=== PATIENT | male | born 1950 | race Caucasian/White ===

== ENCOUNTER 2020-01-16 09:31 | Emergency (ER) | payer MEDICARE ==
[2020-01-16] MEDS ORDERED: Dicyclomine 20 MG TAB ONE (10:09)
[2020-01-16] MEDS ORDERED: Ondansetron PF 4 MG/2 ML Vial ONE (10:09)
[2020-01-16 10:52] LABS: #Basophils 0.1 thou/uL (0.0-0.2); #Eosinphils 0.6 thou/uL (0.0-0.7); #Lymphocytes 1.8 thou/uL (1.20-3.40); #Monocytes 0.9 thou/uL (0.11-0.59); #Neutrophils 5.7 thou/uL (1.40-6.50); %Basophils 0.8 % (0.0-1.0); %Eosinophils 6.5 % (0.0-10.0); %Lymphocytes 20.1 % (21.0-51.0); %Monocytes 10.2 % (0.0-10.0); %Neutrophils 62.4 % (42.0-75.0); Mean Corpuscular HGB CONC 33.3 g/dL (32.0-36.0); Mean Corpuscular Volume 96.1 fL (78.0-98.0); Mean Platelet Volume 7.8 fL (7.4-10.4); Platelet Count 218 thou/uL (130-400); RBC Distribution Width 12.2 % (11.5-14.5); Red Blood Cell (RBC) Count 3.75 mill/uL (4.70-6.10); White Blood Cell (WBC) Count 9.1 thou/uL (4.8-10.8)
[2020-01-16 11:13] LABS: ALT (SGPT) 8 U/L (8-55); AST (SGOT) 12 U/L (5-34); Albumin 3.2 g/dL (3.4-4.8); Alkaline Phosphatase 77 U/L (40-110); Anion Gap 14 mmol/L (10-20); BUN (Urea Nitrogen) 25 mg/dL (8.4-25.7); Bilirubin, Total 0.4 mg/dL (0.2-1.2); CK (CPK) 45 U/L (30-200); Calc. Creatinine Clearance 0 mL/min (70-130); Calcium 8.3 mg/dL (7.8-10.44); Carbon Dioxide 21 mmol/L (23-31); Chloride 109 mmol/L (98-107); Estimated GFR-MDRD 88; Globulin 2.3 g/dL (2.4-3.5); Glucose 83 mg/dL (80-115); Magnesium 1.8 mg/dL (1.6-2.6); Potassium 4.2 mmol/L (3.5-5.1); Protein, Total 5.5 g/dL (5.8-8.1); Sodium 140 mmol/L (136-145)
[2020-01-16] MEDS ORDERED: Acetaminophen 500 MG TAB ONE (13:02)
[2020-01-16] MEDS ORDERED: Lidocaine 4% Cream 5 GM TUBE w/ Tegaderm ONE (13:05)
[2020-01-16 13:33] LABS: Bilirubin Negative (Negative); Blood, Urine Negative (Negative); Clarity Clear (Clear); Glucose, Urine (Dipstick) Normal (Negative); Ketone, Urine Negative (Negative); Leukocyte Negative Leu/uL (Negative); Nitrite Negative (Negative); Protein, Urine (Dipstick) 10 mg/dL (Neg-Trace); Specific Gravity, Urine 1.016 (1.002-1.036); Urobilinogen Normal mg/dL (Less than 2)
== END 2020-01-16 18:15 | disposition home or self-care (01) ==
LOC: ERS 09:31
DX: A04.5 Campylobacter enteritis (principal); E86.0 Dehydration; I10 Essential (primary) hypertension; Z79.899 Other long term (current) drug therapy
CPT/HCPCS: 36415; 80053; 81003; 82550; 83605; 83735; 84484; 85025; 87045; 87046; 87086; 87324; 87427; 87449; 93005; 96361; 96374; J2405

== ENCOUNTER 2020-02-19 07:51 | Outpatient (CLI) | payer MEDICARE, OTHER ==
[2020-02-20 10:30] LABS: SARS-CoV-2 MS2 Positive; SARS-CoV-2 N Gene Negative; SARS-CoV-2 S Gene Negative; SARS-CoV-2 by NAA Not Detected (NotDetected); SARS-CoV-2 orf1ab Negative
== END 2020-02-19 07:52 | disposition home or self-care (01) ==
LOC: LABBT 07:51
PROVIDERS: ATTEND Internal Medicine
DX: K59.09 Other constipation (principal); G31.9 Degenerative disease of nervous system, unspecified; Z20.828 Contact with and (suspected) exposure to other viral communicable diseases
CPT/HCPCS: 87635; U0003

== ENCOUNTER 2020-02-19 11:00 | Inpatient (IN) | payer MEDICARE ==
[2020-02-21 12:00] VITALS: BMI 14.3
--- NOTE | 2020-02-21 12:19 | HP ---
REASON FOR ADMISSION: Neurogenic bowel, admission for bowel preparation prior to planned colonoscopy evaluation. HISTORY OF PRESENT ILLNESS: Mr. Ang Damon is a 69-year-old man, whom I recently met in clinic in consultation for severe worsening constipation. He has a history of hypertension as well as some undefined progressive neurological deterioration over the past 12 years or so. He has some spastic weakness, which is greater on the right side and also what sounds like neurogenic bowel. He recalls undergoing some neurologic workup years ago in [place], but decided not to proceed further with it. He has been wheelchair bound for the past decade. He lives alone. His daughter and her family live about an hour away. He only recently established care with a primary physician here. He has been dealing with chronic constipation over the past 12 years and he no longer has control over his bowels. Usually every several days, he would require an enema as well as digital manipulation in order to defecate. This has been his pattern for a long time, but now he has had a couple of recent episodes of fecal impactions. The first occurred 2 or 3 months ago. He was briefly admitted here with sepsis due to likely stercoral ulcer based on appearance of a CT abdomen and pelvis on December 18. He had recurrent stool impaction about a month ago on 01/19/2020. He had a several day stay at a rehab facility and with laxatives and enemas finally passed a large stool plug, had copious diarrhea. Now over the past couple of weeks at home, he will go several days without any bowel movement, then have several days of uncontrollable soft stool and gas. There is no abdominal pain, nausea, or vomiting. He says he can no longer hold in enemas. He and his daughter wanting to consider possible colostomy placement given the progressive difficulty in controlling the bowel movements. He has never undergone colonoscopy. There is no blood in the stool. PAST MEDICAL HISTORY: Hypertension, hyperlipidemia, undefined progressive neurologic deterioration. PAST SURGICAL HISTORY: None. ALLERGIES: NO KNOWN DRUG ALLERGIES. OUTPATIENT MEDICATIONS: 1. Amlodipine 10 mg daily. 2. Metoprolol 50 mg b.i.d. SOCIAL HISTORY: He does smoke. No alcohol or drug use. He lives alone. He is disabled. His daughter and her family live about an hour away. FAMILY HISTORY: The first cousin had colon cancer. REVIEW OF SYSTEMS: Full review of systems including constitutional, head, eyes, ears, nose, throat, GI, , cardiovascular, respiratory, musculoskeletal, neurologic systems is negative except as noted in the HPI. PHYSICAL EXAMINATION: GENERAL: A 69-year-old man, lying in bed comfortably, in no distress. SKIN: No jaundice. No rashes were palpable. He has decubitus ulceration to the sacral area, which I have reviewed the photo documentation, but did not personally examine today. EYES: No scleral icterus. Extraocular eye movements intact. ENT: Mucous membranes moist. No oral lesions. LYMPH: No submandibular or supraclavicular lymphadenopathy. THYROID: Nontender to palpation. HEART: Regular rate and rhythm. LUNGS: Clear to auscultation bilaterally. ABDOMEN: Nondistended. Bowel sounds are present. Soft and nontender to palpation throughout. He has a large right inguinal hernia. EXTREMITIES: No peripheral edema. VESSELS: Radial pulses 2+ bilaterally. NEURO: He has flaccid weakness of the upper and lower extremities bilaterally. He is not slurring his speech. Cranial nerves are intact bilaterally. LABORATORY STUDIES: COVID PCR from 02/19/2020 is negative. From 01/21/2020, WBC was 6.5, hemoglobin 11.6, and platelets 257. From November 2019, sodium was 141, potassium 4.4, BUN 18, and creatinine 1.18. LFTs all normal with total bilirubin 0.9, alkaline phosphatase 63, AST 12, ALT 8, and lipase 37. ASSESSMENT AND PLAN: 1. Chronic constipation. 2. Recent fecal impaction. 3. Degenerative disease of the nervous system, indeterminate etiology. We are admitting the patient for observation tonight and nursing assistance with bowel preparation, in anticipation of diagnostic colonoscopy tomorrow morning. Anticipate he will be able to be discharged from the hospital following the procedure. Assuming that there are no significant structural abnormalities on the colonoscopy, we will probably be sending him for outpatient surgical evaluation for consideration of whether palliative colostomy might be performed. We are going to consult the hospitalist for their assistance in any needed inpatient management of his other chronic medical issues. With regard to his neurologic deterioration, I had sent a referral for him to be seen by a neurologist on an outpatient basis. Job ID: [id number]
[2020-02-21] MEDS: Acetaminophen 325 MG TAB PO PRN (15:39)
--- NOTE | 2020-02-21 15:49 | PDOC.HOSPP ---
- Subjective Encounter Date: 02/21/20 Encounter Time: 14:00 Subjective: Mr. Damon is a 69-year-old male with past medical history of chronic constipation secondary to neurogenic bowel, undetermined chronic neurologic progressive weakness which she has had for 25 years, hypertension, hyperlipide abraham who was admitted by the GI service with plans for fecal disimpaction and colonoscopy. Hospitalist service was consulted for medical management of patient's chronic conditions. Patient reports that he has had a interval worsening of his neurogenic bowel, and reports that he will have to digitally evacuate his bowels, but that this has become increasingly difficult over the past month. He also notes that a few months ago he had some type of infection (records reports sepsis) that gave him profuse diarrhea. Patient expresses frustration with alternating between diarrhea and constipation episodes. His granddaughter and him both question if he can just have a colostomy bag instead. He denies any bloody bowel movements or black tarry stools. Denies abdominal pain. Patient reports that he has an unknown neurologic condition that began approximately 25 years ago with foot drop, and has become progressively worse. He has been wheelchair-bound for the past 10 years. He also notes that he is started to notice weakness in his right arm as well. Patient states that he was worked up by a neurologist, and a sports medicine doctor who performed an MRI of his brain neck and knee with no abnormalities. He states that at that time his doctor wanted to do a lumbar puncture, EMG, nerve biopsy, muscle biopsy but since his doctor and the patient felt that there would be no cure for his condition patient refused the use. Patient expressively states that he does not want to undergo any invasive medical procedures for the evaluation of his neurologic condition. He is amenable to outpatient follow-up with a neurologist. Other than his bowel problems he denies any new neurologic complaints or deficits. - Objective Vital Signs & Weight: Vital Signs (12 hours) Temp Pulse Resp BP Pulse Ox 02/21/20 11:27 98.0 F 111 H 18 197/107 H 99 02/21/20 09:42 97.9 F 124 H 18 138/92 H 100 Weight Weight 118 lb I&O: 02/20/20 02/21/20 02/22/20 06:59 06:59 06:59 Intake Total 500 Output Total 300 Balance 200 Hospitalist ROS - Review of Systems Constitutional: denies: fever, chills, sweats, weakness, malaise, other Eyes: denies: pain, vision change, conjunctivae inflammation, eyelid inflammation, redness, other ENT: denies: ear pain, ear discharge, nose pain, nose discharge, nose congestion, mouth pain, mouth swelling, throat pain, throat swelling, other Respiratory: denies: cough, dry, shortness of breath, hemoptysis, SOB with excertion, pleuritic pain, sputum, wheezing, other Cardiovascular: denies: chest pain, palpitations, orthopnea, paroxysmal noc. dyspnea, edema, light headedness, other Gastrointestinal: reports: constipation. denies: nausea, vomiting, abdominal pain, diarrhea, melena, hematochezia, other Skin: denies: rash, lesions, omar, bruising, other Neurological: reports: weakness - Medication Medications: Home medications include Amlodipine Metoprolol Patient reports that he is prescribed many other medications, however he refuses to take any of them except for amlodipine and metoprolol. He has no known allergies - Exam General Appearance: NAD, awake alert Eye: PERRL, anicteric sclera ENT: normocephalic atraumatic, no oropharyngeal lesions, moist mucosa Neck: supple, symmetric, no JVD, no thyromegaly, no lymphadenopathy, no carotid bruit Heart: RRR, no murmur, no gallops, no rubs, normal peripheral pulses Respiratory: CTAB, no wheezes, no rales, no ronchi, normal chest expansion, no tachypnea, normal percussion Gastrointestinal: soft, non-tender, non-distended, normal bowel sounds, no palpable masses, no hepatomegaly, no splenomegaly, no bruit Extremities: 2+ LE edema (2+ edema to the right lower extremity, 1+ edema to left lower extremity.) Skin: normal turgor, no lesions, no rashes Neurological: no new deficit, hemiplegia Musculoskeletal: diffuse muscle atrophy Psychiatric: normal affect, normal behavior, A&O x 3 Psychiatric - other findings: Endorses mild depression, denies SI/HI Hosp A/P - Plan Neurogenic bowel Recurrent fecal impactions and chronic constipation secondary to unknown progressive neurologic disease. Patient admitted for diagnostic colonoscopy with Dr. Kaplan. Will follow GI recommendations. Plan -Diagnostic colonoscopy tomorow -GI primary Progressive neurologic weakness History of progressive neurologic weakness of unknown etiology for the past 25 years. Patient has had multiple work-ups in the past for this and has refused EMG, nerve biopsy, muscle biopsy. Patient endorses severe frustration with his neurologic condition. I recommend palliative care consult which he is amenable to. He is also amenable to outpatient neurology follow-up, but continues to refuse any invasive procedures so it is uncertain how helpful this will be to him. Plan Palliative care consult Outpatient neurology Hypertension We will continue patient's home amlodipine and metoprolol Left lower extremity swelling Patient reports that he has been less ambulatory and has had increased swelling to his bilateral lower extremities, left worse than right. On exam left lower extremity with pitting edema and mild erythema. Will obtain Doppler to rule out DVT. Plan Lower extremity ultrasound Sacral Ulcers Patient with chronic sacral ulcers. Will consult wound care to prevent progression and treat as needed. Plan -Wound care consult DVT prophylaxis SCDs Full code Case Discussed with attending physician, Dr. Canela.
[2020-02-21] MEDS: Amlodipine 10 MG TAB PO SCH (16:15)
--- NOTE | 2020-02-21 16:41 | ULT ---
EXAM: Left lower extremity venous Doppler US HISTORY: left lower extremity edema and pain FINDINGS: Grayscale, color-flow, Doppler evaluation, spectral analysis of the left lower extremity venous struc tures is performed with 2-D imaging. The left common femoral, superficial femoral, popliteal, posterior tibial, proximal greater saphenous and profunda femoral veins are imaged. There is normal luminal compressibility, flow, and augmentation the visualized deep venous structures of the left lower extremity. IMPRESSION: No evidence of a deep vein thrombosis in the left lower extremity.
[2020-02-21] MEDS ORDERED: GoLYTELY 4,000 ml Bottle PO SCH (17:00)
[2020-02-21] MEDS: Metoprolol Tartrate 50 MG TAB PO SCH (20:12)
[2020-02-21 21:06] LABS: #Basophils 0.1 thou/uL (0.0-0.2); #Eosinphils 0.5 thou/uL (0.0-0.7); #Lymphocytes 1.6 thou/uL (1.20-3.40); #Monocytes 0.8 thou/uL (0.11-0.59); #Neutrophils 5.4 thou/uL (1.40-6.50); %Eosinophils 5.8 % (0.0-10.0); %Lymphocytes 18.8 % (21.0-51.0); %Monocytes 9.2 % (0.0-10.0); %Neutrophils 65.3 % (42.0-75.0); Hemoglobin 11.5 g/dL (14.0-18.0); Mean Corpuscular HGB CONC 33.8 g/dL (32.0-36.0); Mean Corpuscular Hemoglobin 32.6 pg (27.0-31.0); Mean Corpuscular Volume 96.5 fL (78.0-98.0); Mean Platelet Volume 6.8 fL (7.4-10.4); Platelet Count 299 thou/uL (130-400); RBC Distribution Width 12.7 % (11.5-14.5); Red Blood Cell (RBC) Count 3.54 mill/uL (4.70-6.10); White Blood Cell (WBC) Count 8.2 thou/uL (4.8-10.8)
[2020-02-21 21:28] LABS: Anion Gap 14 mmol/L (10-20); BUN (Urea Nitrogen) 31 mg/dL (8.4-25.7); Calc. Creatinine Clearance 54 mL/min (70-130); Calcium 8.6 mg/dL (7.8-10.44); Carbon Dioxide 23 mmol/L (23-31); Chloride 104 mmol/L (98-107); Estimated GFR-MDRD 76; Glucose 154 mg/dL (80-115); Magnesium 1.9 mg/dL (1.6-2.6); Potassium 4.2 mmol/L (3.5-5.1); Sodium 137 mmol/L (136-145)
[2020-02-22] MEDS: Cyclobenzaprine 10 MG TAB PO PRN ×3 (00:36→21:52)
[2020-02-22 06:20] LABS: #Basophils 0.1 thou/uL (0.0-0.2); #Eosinphils 0.3 thou/uL (0.0-0.7); #Lymphocytes 1.3 thou/uL (1.20-3.40); #Monocytes 0.7 thou/uL (0.11-0.59); #Neutrophils 5.8 thou/uL (1.40-6.50); %Eosinophils 3.3 % (0.0-10.0); %Monocytes 8.5 % (0.0-10.0); %Neutrophils 71.3 % (42.0-75.0); Hemoglobin 11.2 g/dL (14.0-18.0); Mean Corpuscular HGB CONC 33.4 g/dL (32.0-36.0); Mean Corpuscular Hemoglobin 31.9 pg (27.0-31.0); Mean Corpuscular Volume 95.7 fL (78.0-98.0); Mean Platelet Volume 6.9 fL (7.4-10.4); Platelet Count 309 thou/uL (130-400); RBC Distribution Width 12.6 % (11.5-14.5); Red Blood Cell (RBC) Count 3.51 mill/uL (4.70-6.10); White Blood Cell (WBC) Count 8.1 thou/uL (4.8-10.8)
[2020-02-22 06:45] LABS: Anion Gap 13 mmol/L (10-20); BUN (Urea Nitrogen) 25 mg/dL (8.4-25.7); Calc. Creatinine Clearance 65 mL/min (70-130); Calcium 8.5 mg/dL (7.8-10.44); Carbon Dioxide 27 mmol/L (23-31); Chloride 104 mmol/L (98-107); Estimated GFR-MDRD Greater than 90; Glucose 77 mg/dL (80-115); Potassium 3.9 mmol/L (3.5-5.1); Sodium 140 mmol/L (136-145)
[2020-02-22] MEDS: Gabapentin 100 MG CAP PO SCH ×2 (08:28→15:44)
[2020-02-22] MEDS: Metoprolol Tartrate 50 MG TAB PO SCH ×2 (08:29→21:32)
[2020-02-22] MEDS ORDERED: GoLYTELY 4,000 ml Bottle PO SCH (09:00)
--- NOTE | 2020-02-22 09:31 | PRG ---
DATE OF SERVICE: 02/22/2020 SUBJECTIVE: Mr. Damon drank about 3/4 of the bowel preparation yesterday evening, but unfortunately has not really had too much stool output yet. He is feeling bloated and distended with some mild nausea, but has not had any vomiting, no significant abdominal pain. OBJECTIVE: VITAL SIGNS: Temperature 97.8, pulse 97, blood pressure 128/76, 95% oxygen saturation on room air. GENERAL: In no acute distress, lying in bed comfortably. HEART: Regular rate and rhythm. LUNGS: Clear to auscultation bilaterally. ABDOMEN: Bowel sounds are present. Nondistended. Soft and nontender to palpation. EXTREMITIES: No peripheral edema. LABORATORY STUDIES: WBC is 8.1, hemoglobin 11.2, and platelets 309. Sodium 140, potassium 3.9, BUN 25, creatinine 0.81, glucose 77, and magnesium 1.9. ASSESSMENT AND PLAN: 1. Chronic constipation, likely represents neurogenic bowel. 2. Recent fecal impaction. The patient has not had good enough results from his bowel preparation. We discussed bowel preparation is often more difficult with neurogenic bowel. We are going to postpone the procedure for today, have him finish out the gallon of YUPIQ from yesterday, and start working on a second gallon, hopefully to be completed by the end of the day. We will see what his results are with this, and tentatively plan to get the colonoscopy done tomorrow morning. He can have clear liquids today with the bowel preparation. Again, assuming there are no significant structural abnormalities on the colonoscopy, we will probably be sending him for outpatient surgical evaluation for consideration of palliative colostomy. 3. Degenerative disease of the nervous system, indeterminate etiology. I again discussed with the patient that formal neurologic evaluation would be valuable from both the diagnostic and prognostic perspective, and potentially therapeutic perspective as well. However, he reiterates that he does not desire to undergo any significant neurologic workup. He is open to following up with Neurology as an outpatient. I greatly appreciate the assistance of the hospitalist service and medical management. Palliative Care has been consulted as well. Job ID: [id number]
[2020-02-22] MEDS ORDERED: FLU VACC QS2020-21(65YR UP)/PF 240 MCG/0.7 ML SYRINGE IM ONE (13:00)
--- NOTE | 2020-02-22 13:01 | PDOC.PALCO ---
Palliative Care Consult - Consult Details Requesting Physician: Bettye Chow PA-C Reason for Consult: symptom management - Pertinent HPI Mr Damon is a 69 year old make with chronic illness of unknown neurologic progressive weakness. Onset 25 years ago. Currently wheelchair bound, dependent on assistance for basic ADL. He has chronic constipation secondary to his neurogenic bowel. States since rehab his bowel issues have progressed. He digitally disimpacts himself. Also reports no longer able to safely transition from his wheelchair to the commode and daily sits on a chux pad and has a caregiver assist with bowel regimen. No longer able to transition from wheelchair to commode as house door frame is not appropriate width for wheelchair. States bowel fluctuates at times between loose stools/diarrhea or significant constipation. Significant right inguinal hernia. He is desiring a colostomy. - Pertinent PMH Undiagnosed progressive neurologic weakness, hypertension, HDL, hernia - Social History Smoking Status: Current every day smoker Smoking: cigarettes Alcohol Use: none Drug Use History: none Living Situation: independent, other (Has daily private pay caregiver for one hour, a paid caregiver every tuesday to assist with personal errands/groceries) - Medications MAR Reviewed: Yes - Allergies Allergies/Adverse Reactions: Allergies Allergy/AdvReac Type Severity Reaction Status Date / Time No Known Allergies Allergy Verified 07/14/19 05:54 - Subjective Lying in bed. Converses easily. Finishing iman. Mild abdominal cramping that is intermittent. - ROS Constitutional: alert, weakness ENT: alteration in dentition Respiratory: dry cough Cardiology: other (Denies chest pain or palpitations.) Gastrointestinal: abdominal pain, constipation Musculoskeletal: leg pain Neurological: incoordination, numbness, weakness Skin: other (fragile, wound to sacrum) - Objective Vital Signs: Vital Signs - Most Recent Temp Pulse Resp BP Pulse Ox 98.2 F 80 18 160/77 H 96 02/22/20 12:16 02/22/20 12:16 02/22/20 12:16 02/22/20 12:16 02/22/20 12:16 Palliative Performance Scale: 40 - Physical Exam Constitutional: cachectic, ill appearing HEENT: EOMI, moist MMs, poor dentition Respiratory: clear to auscultation bilateral, unlabored breathing Cardiovascular: RRR Gastrointestinal: soft, non-tender, positive bowel sounds Deviation from normal: right inguinal hernia Musculoskeletal: diffuse muscle atrophy Deviation from normal: contracture to toes Deviation from normal: weakness to lower ext bilaterally, right upper with weakness. Skin: fragile, friable Deviation from normal: Wound to sacrum Psychiatric: A&O x 3, normal affect, normal mood - Problem List (1) Neurological muscle weakness Code(s): M62.81 - MUSCLE WEAKNESS (GENERALIZED) Current Visit: Yes Status: Acute (2) Neurogenic bowel Code(s): K59.2 - NEUROGENIC BOWEL, NOT ELSEWHERE CLASSIFIED Current Visit: Yes Status: Acute (3) Inguinal hernia Code(s): K40.90 - UNIL INGUINAL HERNIA, W/O OBST OR GANGR, NOT SPCF RECUR Current Visit: Yes Status: Acute (4) Constipation by delayed colonic transit Code(s): K59.01 - SLOW TRANSIT CONSTIPATION Current Visit: Yes Status: Acute (5) Severe protein-calorie malnutrition Code(s): E43 - UNSPECIFIED SEVERE PROTEIN-CALORIE MALNUTRITION Current Visit: Yes Status: Chronic (6) Palliative care encounter Code(s): Z51.5 - ENCOUNTER FOR PALLIATIVE CARE Current Visit: Yes Status: Acute - Plan/Recommendations Plan: Goal of Care: Desires colostomy. Maintain independence, dignity To have a colonscopy 02/22. Discussed dietary measures to promote fiber intake. He is edentulous, which is a significant consideration for intake as well as his stated desire to "eat what he wants" Depending on outcome from Colonscopy: Discussed daily mirilax, he has but does not use daily. Discussed using in coffee he drinks every morning Daily bowel program Consideration for Lubiprostone 24mg QD Initiated discussion in relation to Medical Power of Spark Tester and Directive to Physician, did not desire to pursue. In asking of plans for his future related to progressing weakness and decreasing ability to carry out ADL and remain in an independent environment he states he has not "thought about that". Encouraged his to discuss with his daughter so he can "respond as needed and not urgently react" agreeable to further conversation related to assumed disease progression and plans for the future. [75] minutes spent on this encounter with >50% of the time in counseling and coordination of care. Thank you for this very appropriate consult.
--- NOTE | 2020-02-22 15:43 | PDOC.HOSPP ---
- Subjective Encounter Date: 02/22/20 Encounter Time: 10:00 Subjective: Patient seen for follow-up regarding patient. He reports abdominal cramps. - Objective Vital Signs & Weight: Vital Signs (12 hours) Temp Pulse Resp BP Pulse Ox 02/22/20 12:16 98.2 F 80 18 160/77 H 96 02/22/20 07:22 97.8 F 97 19 128/76 95 02/22/20 04:30 99.1 F 98 18 128/65 95 Weight Admit Weight 118 lb Weight 118 lb I&O: 02/21/20 02/22/20 02/23/20 06:59 06:59 06:59 Intake Total 5140 Output Total 1950 2775 Balance 6920 -2775 Result Diagrams: 02/22/20 05:47 02/22/20 05:47 Additional Labs: Labs and MAR reviewed by ct Hospitalist ROS - Review of Systems Cardiovascular: denies: chest pain, palpitations, orthopnea, paroxysmal noc. dyspnea, edema, light headedness Gastrointestinal: reports: abdominal pain, constipation. denies: nausea, vo miting, diarrhea, melena, hematochezia - Medication Medications: Active Medications Generic Name Dose Route Start Last Admin Trade Name Freq PRN Reason Stop Dose Admin Acetaminophen 650 mg 02/21/20 15:33 02/21/20 15:39 Acetaminophen 325 Mg Tab PO 650 mg Q6H PRN Administration Headache/Fever or Pain Amlodipine Besylate 10 mg 02/21/20 21:00 02/21/20 16:15 Amlodipine 10 Mg Tab PO 10 mg HS JUAN Administration Cyclobenzaprine HCl 5 mg 02/21/20 23:53 02/22/20 15:37 Cyclobenzaprine 10 Mg Tab PO 5 mg TID PRN Administration Muscle Spasm Gabapentin 100 mg 02/22/20 09:00 02/22/20 08:28 Gabapentin 100 Mg Cap PO Not Given TID JUAN Metoprolol Tartrate 25 mg 02/21/20 21:00 02/22/20 08:29 Metoprolol Tartrate 50 Mg Tab PO 25 mg BID JUAN Administration Polyethylene Glycol/Electrolytes 4,000 ml 02/22/20 09:00 02/22/20 09:54 Golytely 4,000 Ml Bottle PO 02/22/20 21:00 4,000 ml NOW JUAN Administration - Exam General Appearance: awake alert Eye: anicteric sclera ENT: moist mucosa Neck: supple Heart: RRR Respiratory: CTAB Gastrointestinal: soft, non-tender Extremities: no clubbing Skin: no rashes Psychiatric: normal affect Hosp A/P (1) Constipation by delayed colonic transit Code(s): K59.01 - SLOW TRANSIT CONSTIPATION Status: Acute (2) Essential hypertension Code(s): I10 - ESSENTIAL (PRIMARY) HYPERTENSION Status: Acute (3) Severe protein-calorie malnutrition Code(s): E43 - UNSPECIFIED SEVERE PROTEIN-CALORIE MALNUTRITION Status: Chronic - Plan Patient had GoLYTELY last night, more GoLYTELY ordered for today. Patient to have colonoscopy tomorrow. Patient seen by palliative care service, would like to pursue colostomy down the road. Continue amlodipine 10 mg daily, metoprolol 25 mg 2 times a day and monitor vital signs. Titrate antihypertensives as needed.
--- NOTE | 2020-02-22 16:08 | RAD ---
XR Abdomen 1 View/KUB History: Constipation Comparison: CT examination December 2019 Findings: There continues to be dilated loops of large and small bowel. No free air. Lung bases are c lear. Impression: No free air. Moderate bowel dilatation.
[2020-02-22] MEDS: Lidocaine 2% Jelly 5 ML TUBE TOP PRN (21:31)
[2020-02-22] MEDS: Senokot S 8.6-50 MG TAB PO SCH (21:32)
[2020-02-22] MEDS: Amlodipine 10 MG TAB PO SCH (21:32)
[2020-02-22] MEDS ORDERED: Ondansetron ODT 4 MG TAB PO SCH (22:15)
[2020-02-23] MEDS: Gabapentin 100 MG CAP PO SCH ×4 (00:28→20:22)
[2020-02-23] MEDS: Lidocaine 2% Jelly 5 ML TUBE TOP PRN (03:32)
[2020-02-23] MEDS: Acetaminophen 325 MG TAB PO PRN (03:53)
[2020-02-23 04:26] LABS: Bilirubin Negative (Negative); Blood, Urine Trace (Negative); Clarity Turbid (Clear); Glucose, Urine (Dipstick) Normal (Negative); Ketone, Urine 10 mg/dL (Negative); Leukocyte 500 Leu/uL (Negative); Nitrite Negative (Negative); Protein, Urine (Dipstick) 10 mg/dL (Neg-Trace); Squamous Epithelial 0-3 HPF (0-3); Urobilinogen 3 mg/dL (Less than 2); WBC/HPF Greater than 50 HPF (0-3)
[2020-02-23 04:28] LABS: Bacteria/HPF 1+ HPF (None Seen)
[2020-02-23 04:32] LABS: Urine Culture Reflex Yes Yes
[2020-02-23 04:56] LABS: #Eosinphils 0.3 thou/uL (0.0-0.7); #Lymphocytes 1.3 thou/uL (1.20-3.40); #Monocytes 0.8 thou/uL (0.11-0.59); %Basophils 0.4 % (0.0-1.0); %Eosinophils 3.5 % (0.0-10.0); %Lymphocytes 15.7 % (21.0-51.0); %Monocytes 9.1 % (0.0-10.0); %Neutrophils 71.4 % (42.0-75.0); Hemoglobin 11.1 g/dL (14.0-18.0); Mean Corpuscular HGB CONC 33.4 g/dL (32.0-36.0); Mean Corpuscular Hemoglobin 32.1 pg (27.0-31.0); Platelet Count 287 thou/uL (130-400); RBC Distribution Width 12.7 % (11.5-14.5); Red Blood Cell (RBC) Count 3.45 mill/uL (4.70-6.10); White Blood Cell (WBC) Count 8.4 thou/uL (4.8-10.8)
[2020-02-23 05:21] LABS: Anion Gap 17 mmol/L (10-20); BUN (Urea Nitrogen) 21 mg/dL (8.4-25.7); Calc. Creatinine Clearance 69 mL/min (70-130); Calcium 8.4 mg/dL (7.8-10.44); Carbon Dioxide 21 mmol/L (23-31); Chloride 103 mmol/L (98-107); Estimated GFR-MDRD Greater than 90; Potassium 3.9 mmol/L (3.5-5.1); Sodium 137 mmol/L (136-145)
[2020-02-23 05:30] LABS: Glucose 55 mg/dL (80-115)
[2020-02-23] MEDS ORDERED: Dextrose 50% Abboject 50 ML SYRINGE ONE (05:36)
[2020-02-23] MEDS ORDERED: Dextrose 50% Abboject 50 ML SYRINGE SLOW IVP PRN (06:20)
[2020-02-23] MEDS ORDERED: Lidocaine 1% PF 5 ML VIAL ONE (10:36)
[2020-02-23] MEDS ORDERED: PROPOFOL 200 MG/20 ML VIAL ONE (10:36)
[2020-02-23] MEDS ORDERED: Promethazine HCl 25 MG/ML VIAL IM PRN ×2 (10:46→11:20)
[2020-02-23] MEDS ORDERED: Promethazine HCl 25 MG/ML VIAL SLOW IVP PRN ×2 (10:46→11:20)
[2020-02-23] MEDS ORDERED: Ondansetron HCl/PF 4 MG/2 ML Vial IVP PRN ×2 (10:46→11:20)
[2020-02-23] MEDS ORDERED: Ciprofloxacin 500 MG TAB PO SCH (11:00)
[2020-02-23] MEDS ORDERED: GoLYTELY 4,000 ml Bottle PO SCH (11:10)
--- NOTE | 2020-02-23 12:33 | OP ---
DATE OF PROCEDURE: 02/23/2020 PAPER GLUING OPERATOR SURGEON: None. PROCEDURE: 1. Colonoscopy, incomplete due to poor bowel preparation. 2. Manual fecal disimpaction under anesthesia. MEDICATIONS: See Anesthesia record. FINDINGS: After discussion of the risks, benefits, and alternatives of the procedure, informed consent was obtained and witnessed. Pre-endoscopic cardiopulmonary examination was satisfactory. Time-out was performed before sedation was achieved. Sedation was achieved with Anesthesia assistance in the endoscopy unit. The patient was placed in left lateral decubitus position. Digital rectal exam was performed and demonstrated external hemorrhoids as well as some semisolid stool within the rectal vault. A Pentax adult colonoscope was inserted into the anus. There remained copious amount of solid and semisolid stool within the rectum and rectosigmoid colon. The colonoscope was able to be passed beyond this area and into the proximal sigmoid and descending colon, which still had a lot of adherent more semi liquid stool and was overall quite dilated. The scope was passed up carefully to the level of estimated hepatic flexure where there was much more liquid stool visualized. The cecal base was not reached, and where visualized, the colonic mucosa appeared normal, but was significantly obscured by poor bowel preparation. Attention was then directed to the rectosigmoid area. I spent extensive time in irrigating and suctioning the area as well as performing repeated manual stool removal from the rectum. In this fashion, I was able to extract the vast majority of the semisolid stool from the rectum and rectosigmoid area with just a few small chunks remaining at the end of the procedure. Visualization of the rectum demonstrated few stercoral erosions, as well as internal hemorrhoids. The colonoscope was completely withdrawn and the patient allowed to recover. The patient tolerated the procedure well. There were no immediate postprocedure complications. IMPRESSION: 1. Incomplete colonoscopy due to copious amount of retained stool particularly in the distal colon. 2. Extensive irrigation and manual disimpaction of the rectum and rectosigmoid colon. 3. Few stercoral erosions in the rectum. 4. Internal and external hemorrhoids. 5. Overall findings consistent with severe neurogenic bowel causing chronic colonic pseudo-obstruction. RECOMMENDATIONS: 1. Continue on a clear liquid diet. 2. We will have the patient finish out his gallon of [employer] today. 3. Depending on stool output over the weekend, we will probably plan to repeat colonoscopy on Tuesday, and seek surgical consultation at that time. I agree the patient will likely benefit from subtotal colectomy with colostomy, but need to get the bowel cleaned out better first. Job ID: [id number] [place]
[2020-02-23] MEDS: Metoprolol Tartrate 50 MG TAB PO SCH ×2 (12:37→20:23)
[2020-02-23] MEDS: Senokot S 8.6-50 MG TAB PO SCH ×2 (12:37→20:23)
[2020-02-23] MEDS: Cyclobenzaprine 10 MG TAB PO PRN (13:45)
--- NOTE | 2020-02-23 16:58 | PDOC.HOSPP ---
- Subjective Encounter Date: 02/23/20 Encounter Time: 16:56 Subjective: Patient seen for follow-up regarding constipation. She had colonoscopy earlier today. She is sleepy but arousable, falling asleep right away. Could not complete review of systems. - Objective Vital Signs & Weight: Vital Signs (12 hours) Temp Pulse Resp BP Pulse Ox 02/23/20 08:00 98.7 F 98 16 112/64 96 Weight Admit Weight 118 lb Weight 118 lb I&O: 02/22/20 02/23/20 02/24/20 06:59 06:59 05:59 Intake Total 5140 2955 1050 Output Total 1950 5849 750 Balance 3190 -7394 300 Result Diagrams: 02/23/20 04:26 02/23/20 04:26 Additional Labs: Accuchecks 02/23/20 06:16 POC Glucose 162 H Labs and MAR reviewed by ca Hospitalist ROS - Review of Systems ROS unobtainable: due to mental status - Medication Medications: Active Medications Generic Name Dose Route Start Last Admin Trade Name Freq PRN Reason Stop Dose Admin Acetaminophen 650 mg 02/21/20 15:33 02/23/20 03:53 Acetaminophen 325 Mg Tab PO 650 mg Q6H PRN Administration Headache/Fever or Pain Amlodipine Besylate 10 mg 02/21/20 21:00 02/22/20 21:32 Amlodipine 10 Mg Tab PO 10 mg HS JUAN Administration Cyclobenzaprine HCl 5 mg 02/21/20 23:53 02/23/20 13:45 Cyclobenzaprine 10 Mg Tab PO 5 mg TID PRN Administration Muscle Spasm Dextrose/Water 25 gm 02/23/20 06:20 02/23/20 05:40 Dextrose 50% Abboject 50 Ml Syringe SLOW IVP 25 gm 0630 PRN Administration BLOOD GLUCOSE Gabapentin 100 mg 02/22/20 09:00 02/23/20 12:36 Gabapentin 100 Mg Cap PO Not Given TID JUAN Lidocaine HCl 0 ml 02/22/20 21:13 02/23/20 03:32 Lidocaine 2% Jelly 5 Ml Tube TOP 5 ml WILLCALL PRN Administration Pain Metoprolol Tartrate 25 mg 02/21/20 21:00 02/23/20 12:37 Metoprolol Tartrate 50 Mg Tab PO Not Given BID JUAN Senna/Docusate Sodium 1 tab 02/22/20 21:00 10/31/20 12:37 Senokot S 8.6-50 Mg Tab PO Not Given BID JUAN - Exam General Appearance: awake alert General - other findings: Appears malnourished Eye: anicteric sclera ENT: moist mucosa Neck: supple Heart: RRR Respiratory: CTAB Gastrointestinal: soft Extremities: no edema Skin: no rashes Musculoskeletal: no muscle wasting Psychiatric: lethargic Hosp A/P (1) Constipation by delayed colonic transit Code(s): K59.01 - SLOW TRANSIT CONSTIPATION Status: Acute (2) Essential hypertension Code(s): I10 - ESSENTIAL (PRIMARY) HYPERTENSION Status: Acute (3) Severe protein-calorie malnutrition Code(s): E43 - UNSPECIFIED SEVERE PROTEIN-CALORIE MALNUTRITION Status: Chronic - Plan Patient had colonoscopy earlier today, poor prep. He is having more GoLYTELY, possible colonoscopy on Tuesday. Attention is controlled.
[2020-02-23] MEDS: Ciprofloxacin 500 MG TAB PO SCH (20:22)
[2020-02-23] MEDS: Amlodipine 10 MG TAB PO SCH (20:23)
[2020-02-24] MEDS: Cyclobenzaprine 10 MG TAB PO PRN ×3 (02:26→18:27)
[2020-02-24] MEDS: Acetaminophen 325 MG TAB PO PRN ×2 (02:28→08:25)
[2020-02-24] MEDS: Ciprofloxacin 500 MG TAB PO SCH ×2 (05:35→20:33)
[2020-02-24 06:58] LABS: #Basophils 0.1 thou/uL (0.0-0.2); #Eosinphils 0.2 thou/uL (0.0-0.7); #Lymphocytes 1.3 thou/uL (1.20-3.40); #Monocytes 0.5 thou/uL (0.11-0.59); #Neutrophils 4.6 thou/uL (1.40-6.50); %Basophils 1.1 % (0.0-1.0); %Lymphocytes 18.8 % (21.0-51.0); %Monocytes 7.8 % (0.0-10.0); %Neutrophils 69.3 % (42.0-75.0); Hemoglobin 10.6 g/dL (14.0-18.0); Mean Corpuscular HGB CONC 32.9 g/dL (32.0-36.0); Mean Corpuscular Volume 97.2 fL (78.0-98.0); Mean Platelet Volume 6.8 fL (7.4-10.4); Platelet Count 237 thou/uL (130-400); RBC Distribution Width 12.5 % (11.5-14.5); White Blood Cell (WBC) Count 6.7 thou/uL (4.8-10.8)
[2020-02-24 07:21] LABS: Anion Gap 15 mmol/L (10-20); BUN (Urea Nitrogen) 16 mg/dL (8.4-25.7); Calc. Creatinine Clearance 66 mL/min (70-130); Calcium 8.4 mg/dL (7.8-10.44); Carbon Dioxide 25 mmol/L (23-31); Chloride 103 mmol/L (98-107); Estimated GFR-MDRD Greater than 90; Glucose 66 mg/dL (80-115); Potassium 3.8 mmol/L (3.5-5.1); Sodium 139 mmol/L (136-145)
[2020-02-24] MEDS: Metoprolol Tartrate 50 MG TAB PO SCH ×2 (08:18→20:33)
[2020-02-24] MEDS: Gabapentin 100 MG CAP PO SCH ×3 (08:19→23:24)
[2020-02-24] MEDS: Senokot S 8.6-50 MG TAB PO SCH ×2 (08:20→20:37)
--- NOTE | 2020-02-24 11:26 | PRG ---
DATE OF SERVICE: 02/24/2020 SUBJECTIVE: After his colonoscopy yesterday, Mr. Damon did finish out that second gallon of GoLYTELY. He remains on clear liquids. He is expressing extreme hunger. His abdominal discomfort has significantly improved. He continues to complain of overall weakness. OBJECTIVE: VITAL SIGNS: Temperature 97.8, pulse 83, blood pressure 108/68, 93% oxygen saturation on room air. GENERAL: Chronically ill. No acute distress. HEART: Regular rate and rhythm. LUNGS: Clear to auscultation bilaterally. ABDOMEN: Much less distended. Bowel sounds are present. Nontender to palpation. EXTREMITIES: No peripheral edema. Wasting of extremities x4. LABORATORY STUDIES: WBC 6.7, hemoglobin 10.6, platelets 237. Sodium 139, potassium 3.8, BUN 16, creatinine 0.80, glucose 66, calcium 8.4. ASSESSMENT AND PLAN: 1. Severe chronic constipation, secondary to neurogenic bowel. 2. Recurrent large stool impactions. I had another long discussion with the patient again today. His colonic dysmotility is indeed quite severe as he really had minimal results with 1-1/2 gallons of GoLYTELY. We got most of the solid stool cleared out on colonoscopy yesterday, but were unable to really get a good examination of the colonic mucosa. With his completion of that second gallon of GoLYTELY, he has had much better stool results, still not clear. At this point, we will keep him on clear liquids, give him some Ensure Clear, plan for a dose of magnesium citrate this evening, and we will re-attempt colonoscopy tomorrow morning to try to get better clean-out and better view of the colonic mucosa. Anticipate afterward, we will go ahead and formally seek surgical consultation for consideration of subtotal colectomy with colostomy. 3. Urinary tract infection. He is being treated with oral ciprofloxacin, plan 5-day course. Urine culture still pending. 4. Degenerative disease of the nervous system, indeterminate etiology. He does not desire to undergo any significant neurologic workup. I had referred him to a neurologist as an outpatient. I also recommended we have him be seen by PT/OT while he is here, but he declines this as well. Job ID: [id number]
--- NOTE | 2020-02-24 16:38 | PDOC.HOSPP ---
- Subjective Encounter Date: 02/24/20 Encounter Time: 09:00 Subjective: Patient seen in follow-up for severe constipation. Reports ongoing constipation. Denies chest pain or shortness of breath. - Objective Vital Signs & Weight: Vital Signs (12 hours) Temp Pulse Resp BP Pulse Ox 02/24/20 08:00 97.8 F 83 16 108/68 93 L Weight Admit Weight 118 lb Weight 118 lb I&O: 02/23/20 02/24/20 02/25/20 07:59 06:59 06:59 Intake Total Output Total 650 Balance -650 Result Diagrams: 02/24/20 06:37 02/24/20 06:36 Additional Labs: I reviewed patient's labs and [facility] Hospitalist ROS - Review of Systems Gastrointestinal: reports: constipation. denies: nausea, vomiting, abdominal pain, diarrhea, melena, hematochezia Genitourinary: denies: dysuria, frequency, incontinence, retention - Medication Medications: Active Medications Generic Name Dose Route Start Last Admin Trade Name Freq PRN Reason Stop Dose Admin Acetaminophen 650 mg 02/21/20 15:33 02/24/20 08:25 Acetaminophen 325 Mg Tab PO 650 mg Q6H PRN Administration Headache/Fever or Pain Amlodipine Besylate 10 mg 02/21/20 21:00 02/23/20 20:23 Amlodipine 10 Mg Tab PO 10 mg HS JUAN Administration Ciprofloxacin 500 mg 02/23/20 20:00 02/24/20 05:35 Ciprofloxacin 500 Mg Tab PO 02/28/20 06:01 500 mg 0600,2000 JUAN Administration Cyclobenzaprine HCl 5 mg 02/21/20 23:53 02/24/20 10:38 Cyclobenzaprine 10 Mg Tab PO 5 mg TID PRN Administration Muscle Spasm Dextrose/Water 25 gm 02/23/20 06:20 02/23/20 05:40 Dextrose 50% Abboject 50 Ml Syringe SLOW IVP 25 gm 0630 PRN Administration BLOOD GLUCOSE Gabapentin 100 mg 02/22/20 09:00 02/24/20 15:08 Gabapentin 100 Mg Cap PO Not Given TID JUAN Lidocaine HCl 0 ml 02/22/20 21:13 02/23/20 03:32 Lidocaine 2% Jelly 5 Ml Tube TOP 5 ml WILLCALL PRN Administration Pain Metoprolol Tartrate 25 mg 02/21/20 21:00 02/24/20 08:18 Metoprolol Tartrate 50 Mg Tab PO Not Given BID JUAN Senna/Docusate Sodium 1 tab 02/22/20 21:00 02/24/20 08:20 Senokot S 8.6-50 Mg Tab PO Not Given BID JUAN - Exam General Appearance: awake alert General - other findings: Appears malnourished Eye: anicteric sclera ENT: no oropharyngeal lesions Heart: RRR Respiratory: CTAB Gastrointestinal: non-tender, non-distended Skin: no rashes Psychiatric: normal affect Hosp A/P (1) Constipation by delayed colonic transit Code(s): K59.01 - SLOW TRANSIT CONSTIPATION Status: Acute (2) Essential hypertension Code(s): I10 - ESSENTIAL (PRIMARY) HYPERTENSION Status: Acute (3) Severe protein-calorie malnutrition Code(s): E43 - UNSPECIFIED SEVERE PROTEIN-CALORIE MALNUTRITION Status: Chronic - Plan Patient to have GoLYTELY. Repeat colonoscopy likely tomorrow. No other acute issues.
[2020-02-24] MEDS ORDERED: Magnesium Citrate 300 ML BOT PO SCH (18:00)
[2020-02-24] MEDS: Amlodipine 10 MG TAB PO SCH (20:34)
[2020-02-25] MEDS: Cyclobenzaprine 10 MG TAB PO PRN ×2 (03:57→21:01)
[2020-02-25] MEDS: Ciprofloxacin 500 MG TAB PO SCH ×2 (05:42→20:13)
[2020-02-25] MEDS: Metoprolol Tartrate 50 MG TAB PO SCH ×2 (09:04→20:58)
[2020-02-25] MEDS: Gabapentin 100 MG CAP PO SCH ×4 (09:05→20:13)
[2020-02-25] MEDS: Senokot S 8.6-50 MG TAB PO SCH ×3 (09:05→20:59)
[2020-02-25] MEDS ORDERED: PHENYLEPHRINE-NS 100 MCG/ML 10 ML SYRINGE ONE (09:26)
[2020-02-25] MEDS ORDERED: PROPOFOL 200 MG/20 ML VIAL ONE (09:26)
[2020-02-25] MEDS ORDERED: Lidocaine 1% PF 5 ML VIAL ONE (09:26)
[2020-02-25] MEDS: Polyethylene Glycol 3350 17 GM Packet PO SCH ×2 (14:31→20:12)
[2020-02-25] MEDS: Acetaminophen 325 MG TAB PO PRN (14:31)
--- NOTE | 2020-02-25 14:51 | PDOC.GSPN ---
Surgery Progress Note: Subj - Subjective Narrative: Mr. Damon is a 69-year-old male with a past medical history of an undefined progressive neurological disorder who was admitted to the hospital for worsening constipation and stool impaction. He has had constipation for over 10 years that he attributes to his neurological disorder. He has had this neurological disorder for about 12 years which has led to his right sided weakness. He also reports a right sided inguinal hernia, but he said that this does not bother him or cause him pain. We discussed the possibility of a colectomy with colostomy, and Mr. Damon said that he is willing to do anything that allows him to "live his life" and "enjoy eating again." As a result, if a colostomy and colectomy helps prevent his recurrent constipation and impaction, he is willing to undergo the surgery. He denies having abdominal pain. Surgery Progress Note: Obj - Vital signs Vital signs: Vital Signs - Most Recent Temp Pulse Resp BP Pulse Ox 99.9 F H 75 18 132/70 94 L 02/25/20 14:26 02/25/20 14:26 02/25/20 14:26 02/25/20 14:26 02/25/20 14:26 - Physical Exam General: no distress, no pain, cachectic Cardiovascular: regular rate and rhythm Respiratory: clear to auscultation Abdomen: soft, non tender, nondistended Hernia: inguinal Psychiatric: memory intact, oriented to time, oriented to person, oriented to place Surgery Progress Note: Results - Labs Result Diagrams: 02/24/20 06:37 02/24/20 06:36 Surgery Progress Note: A/P - Problem (1) Neurogenic bowel Current Visit: Yes Code(s): K59.2 - NEUROGENIC BOWEL, NOT ELSEWHERE CLASSIFIED Status: Acute (2) Constipation by delayed colonic transit Current Visit: Yes Code(s): K59.01 - SLOW TRANSIT CONSTIPATION Status: Chronic (3) Inguinal hernia Current Visit: Yes Code(s): K40.90 - UNIL INGUINAL HERNIA, W/O OBST OR GANGR, NOT SPCF RECUR Status: Chronic (4) Severe protein-calorie malnutrition Current Visit: Yes Code(s): E43 - UNSPECIFIED SEVERE PROTEIN-CALORIE MALNUTRITION Status: Chronic - Plan Plan: Will consider performing a subtotal colectomy with colostomy to alleviate the patient from his recurrent constipation and stool impaction. As the patient indicated, what matters most to him is enjoying his life and being able to eat; if the surgery allows him to get to this point faster, he is willing to undergo it. The inguinal hernia does not need to be managed now as it does not cause him any discomfort or pain.
--- NOTE | 2020-02-25 17:32 | OP ---
DATE OF PROCEDURE: 02/25/2020 PROCEDURE PERFORMED: Incomplete colonoscopy. DESCRIPTION OF PROCEDURE: After the patient was informed of the risk, benefits, and possible complications of endoscopy including perforation, reaction to medication, and aspiration, informed consent was obtained. The patient was brought to endoscopy suite, where he was sedated in gradual fashion. Once he was comfortable, a rectal examination was performed, showed slightly increased sphincter tone. The endoscope was advanced to the anal canal through the colon to about the transverse colon, where formed stool was encountered. The prep was poor. There was brown liquid stool and caking of dark stool in the colon navarro, which made illumination very difficult. We ultimately ran into formed stool at about 70 to 80 cm. I suspect this was in the transverse colon that could not be passed. The procedure was aborted because I felt high risk for perforation. Additionally, it was noted that there was a large right scrotal hernia and evaluating his last CAT scan from December, it appeared the cecum was in this on that scan. This was easily reducible at this time. POSTPROCEDURE DIAGNOSES: 1. Right scrotal hernia with colon involved as per previous CT. 2. Severe constipation, possibly related to neurologic disease undefined. RECOMMENDATIONS: 1. MiraLAX t.i.d. Low residue diet. Surgical consultation regarding a large hernia, and the question of possible colostomy for severe constipation issues. 2. I think he should have a Neurology consult, especially if there is going to be any consideration of surgery, just to get a better idea of what his underlying disorder may be. 3. Anil murphy Job ID: [id number]
--- NOTE | 2020-02-25 19:09 | PDOC.HOSPP ---
- Subjective Encounter Date: 02/25/20 Encounter Time: 18:00 Subjective: Patient seen for follow-up regarding severe constipation. He denies any chest pain or shortness of breath. He denies any nausea. - Objective Vital Signs & Weight: Vital Signs (12 hours) Temp Pulse Resp BP Pulse Ox 02/25/20 18:54 98.0 F 91 16 109/59 L 95 02/25/20 18:31 97.5 F L 02/25/20 15:00 80 18 130/70 02/25/20 14:45 75 18 132/70 02/25/20 14:26 99.9 F H 75 18 132/70 94 L 02/25/20 08:00 96 Weight Admit Weight 118 lb Weight 118 lb I&O: 02/24/20 02/25/20 02/26/20 06:59 06:59 06:59 Intake Total 2201 Output Total 2470 Balance -269 Result Diagrams: 02/24/20 06:37 02/24/20 06:36 Additional Labs: Labs and MAR reviewed by tx Hospitalist ROS - Review of Systems Respiratory: denies: cough, shortness of breath, SOB with excertion, pleuritic pain, wheezing Gastrointestinal: reports: constipation. denies: nausea, vomiting, abdominal pain, diarrhea, melena, hematochezia - Medication Medications: Active Medications Generic Name Dose Route Start Last Admin Trade Name Freq PRN Reason Stop Dose Admin Acetaminophen 650 mg 02/21/20 15:33 02/25/20 14:31 Acetaminophen 325 Mg Tab PO 650 mg Q6H PRN Administration Headache/Fever or Pain Amlodipine Besylate 10 mg 02/21/20 21:00 02/24/20 20:34 Amlodipine 10 Mg Tab PO 10 mg HS JUAN Administration Ciprofloxacin 500 mg 02/23/20 20:00 02/25/20 05:42 Ciprofloxacin 500 Mg Tab PO 02/28/20 06:01 500 mg 0600,2000 JUAN Administration Cyclobenzaprine HCl 5 mg 02/21/20 23:53 02/25/20 03:57 Cyclobenzaprine 10 Mg Tab PO 5 mg TID PRN Administration Muscle Spasm Dextrose/Water 25 gm 02/23/20 06:20 02/23/20 05:40 Dextrose 50% Abboject 50 Ml Syringe SLOW IVP 25 gm 0630 PRN Administration BLOOD GLUCOSE Gabapentin 100 mg 02/22/20 09:00 02/25/20 14:30 Gabapentin 100 Mg Cap PO 100 mg TID JUAN Administration Lidocaine HCl 0 ml 02/22/20 21:13 02/23/20 03:32 Lidocaine 2% Jelly 5 Ml Tube TOP 5 ml WILLCALL PRN Administration Pain Metoprolol Tartrate 25 mg 02/21/20 21:00 02/25/20 09:04 Metoprolol Tartrate 50 Mg Tab PO 25 mg BID JUAN Administration Polyethylene Glycol 17 gm 02/25/20 15:00 02/25/20 14:31 Polyethylene Glycol 3350 17 Gm Packet PO 17 gm TID JUAN Administration Senna/Docusate Sodium 1 tab 02/22/20 21:00 02/25/20 09:05 Senokot S 8.6-50 Mg Tab PO Not Given BID JUAN - Exam General Appearance: awake alert General - other findings: Malnourished Eye: anicteric sclera ENT: normocephalic atraumatic Neck: supple Heart: RRR Respiratory: CTAB Gastrointestinal: soft, non-tender Extremities: no edema Skin: no rashes Musculoskeletal: normal tone Psychiatric: normal affect, normal behavior Hosp A/P (1) Constipation by delayed colonic transit Code(s): K59.01 - SLOW TRANSIT CONSTIPATION Status: Chronic (2) Essential hypertension Code(s): I10 - ESSENTIAL (PRIMARY) HYPERTENSION Status: Chronic (3) Severe protein-calorie malnutrition Code(s): E43 - UNSPECIFIED SEVERE PROTEIN-CALORIE MALNUTRITION Status: Chronic - Plan Status post colonoscopy today. General surgery and neurology services have been consulted for opinion and help with management. No other acute issues.
[2020-02-25] MEDS: Melatonin 3 MG TAB PO PRN (20:12)
[2020-02-25] MEDS: Amlodipine 10 MG TAB PO SCH (20:58)
[2020-02-26] MEDS: Ciprofloxacin 500 MG TAB PO SCH ×2 (06:17→20:00)
--- NOTE | 2020-02-26 08:01 | CON ---
DATE OF CONSULTATION: 02/25/2020 CHIEF COMPLAINT: Neurodegenerative disease, constipation. HISTORY OF PRESENT ILLNESS: This is a 69-year-old male with a history of a progressive neurodegenerative disease that causes significant right-sided weakness. He has developed severe constipation as a result of this. He has taken daily MiraLAX and Senokot without much improvement. A part of his problem is difficulty passing stool at the anus. He has had 2 disimpactions this hospitalization. He has always turned down official neurologic workup and so the nature of his neurodegenerative disease is unknown at this time. PAST MEDICAL HISTORY: Hypertension, hyperlipidemia. PAST SURGICAL HISTORY: Denies. MEDICATIONS TAKEN DAILY: 1. Amlodipine. 2. Metoprolol. ALLERGIES: NO KNOWN DRUG ALLERGIES. SOCIAL: He is single. No smoking or alcohol. Lives alone. REVIEW OF SYSTEMS: Otherwise 10 system review of systems otherwise negative unless described above. PHYSICAL EXAMINATION: VITAL SIGNS: Blood pressure is 112/58, pulse 84, respirations 16. He is afebrile. HEENT: Sclerae anicteric. Oropharynx clear. NECK: No lymphadenopathy. CHEST: Clear. HEART: Regular rate. ABDOMEN: Soft, nontender, nondistended. Reducible right inguinal hernia. No other hernias. EXTREMITIES: No ischemia to extremities. LABORATORY DATA: White cell count is 6, hemoglobin 10. Sodium 139, potassium 3.8. ASSESSMENT: 1. Unspecified neurodegenerative disorder. 2. Severe chronic constipation, likely related to #1. 3. Some component of this is likely related to sphincter tone issues, inability to relax through the anal canal. PLAN: Would consider colostomy. Dr. Ruiz has put in for Neurology consult. As long as his neurologic disease does not put him at increased risk of general anesthetic, would be willing to do that on Tuesday or of this week. Job ID: [id number]
--- NOTE | 2020-02-26 09:35 | MRI ---
Exam: Brain MRI with and without contrast HISTORY: Seizure COMPARISON: None FINDINGS: Gradient echo sequence: Coronal gradient echo images do not demonstrate any hemorrhage. Calvarium: Appropriate T1 marrow signal intensity Midline brain parenchyma: Unremarkable Cerebrum:No parenchymal mass, mass effect or midline shift. Brain volume is age-appropriate. Cortical stewart-white matter differentiation is preserved. Extensive chronic small vessel ischemic changes white matter. Ventricles: No evidence of hydrocephalus. Sinuses and mastoid air cells: Adequate aeration Diffusion: Central arterial flow is maintained. Absent restricted diffusion. Postcontrast images: No pathologic enhancement of the brain parenchyma. Postcontrast images are limit ed due to motion degradation. IMPRESSION: 1. No MR evidence of mesial temporal sclerosis. 2. Chronic small vessel ischemic changes white matter 3. Absent restricted diffusion. No acute infarct. 4. Limited evaluation due to motion and patient. Nevertheless, no pathologic enhancement of the brain parenchyma.
[2020-02-26] MEDS: Polyethylene Glycol 3350 17 GM Packet PO SCH ×3 (09:44→21:30)
[2020-02-26] MEDS: Gabapentin 100 MG CAP PO SCH ×3 (09:45→23:02)
[2020-02-26] MEDS: Metoprolol Tartrate 50 MG TAB PO SCH ×2 (09:45→23:01)
[2020-02-26] MEDS: Senokot S 8.6-50 MG TAB PO SCH ×2 (09:46→21:30)
[2020-02-26] MEDS ORDERED: Magnevist 469MG/ML 20 ML VIAL ONE (10:38)
[2020-02-26] MEDS: Cyclobenzaprine 10 MG TAB PO PRN (11:03)
--- NOTE | 2020-02-26 11:12 | PRG ---
DATE OF SERVICE: SUBJECTIVE: Mr. Damon has no complaints today. He is currently undergoing EEG. He has already had MRI as part of his neurologic workup. He has no complaints. OBJECTIVE: VITAL SIGNS: He is afebrile. Vital signs are stable. ABDOMEN: Soft, nontender, nondistended. Right inguinal hernia, reducible. ASSESSMENT: Chronic neurodegenerative state causing severe constipation and impaction. PLAN: The plan was colostomy. We will await for finalization of at least preliminary information for his neurologic disorder. I could perform that surgery laparoscopic diverting colostomy on of this week. We will follow with you. Job ID: [id number]
--- NOTE | 2020-02-26 11:58 | PRG ---
DATE OF SERVICE: 02/26/2020 SUBJECTIVE: Mr. Damon has had no bowel movement since colonoscopy. He does feel better in general. He is tolerating solid diet now. OBJECTIVE: VITAL SIGNS: Temperature 98.1, pulse 95, blood pressure 108/59. GENERAL: He is in no acute distress. Alert and oriented x3. LUNGS: Clear to auscultation bilaterally. HEART: Regular rate and rhythm without murmur. ABDOMEN: Soft, nontender, and nondistended. Bowel sounds are present. EXTREMITIES: No lower extremity edema. LABORATORY DATA: White blood cell count 6.7, hemoglobin 10.6, platelets 237. Creatinine 0.8. IMPRESSION: 1. Severe chronic constipation, was stool impacted in the proximal colon, even within a right inguinal hernia, which was reducible. 2. Neurologic disorder for which he is undergoing further evaluation by Neurology. RECOMMENDATIONS: 1. He is being worked up for neurological abnormality. 2. Plan is for colostomy. This is tentatively scheduled for later this week pending completion of the Neurology workup. 3. Continue MiraLAX three times daily. 4. He is currently tolerating solid diet. Job ID: [id number]
--- NOTE | 2020-02-26 12:08 | CON ---
NEUROLOGY CONSULTATION DATE OF CONSULTATION: 02/26/2020 REASON FOR CONSULTATION: Neurodegenerative disorder. HISTORY OF PRESENT ILLNESS: Mr. Ang Damon is a 69-year-old male with history significant for progressive neurodegenerative disease, which resulted in significant right-sided weakness and muscle atrophy over the last 2 decades. Per the patient, he had seen neurologist almost 20 years ago and then he got evaluated by a neurologist in [place] last time in 2001 when he had MRI of the brain and spine and also of the right knee. They were not able to find any specific diagnosis, so he decided not to follow up with Neurology anymore. The patient denies any problem with slurred speech, problems with swallowing. Per the patient, he does not even try to sit up, to stand up, and walk for the last 10 years because he becomes increasingly unsteady on feet. The patient denies nausea, vomiting, headache, chest pain, abdominal pain, recent illness, or recent exposure to COVID. Currently, he is admitted to the Oncology unit because of complaint of severe constipation. Per the patient, he decided in 2001 not to seek any neurological care and since then he has progressive decrease in muscle mass and he has been wheelchair bound since the last 10 years. REVIEW OF SYSTEMS: All systems reviewed and were negative except the pertinent positives and negatives mentioned in the HPI. PAST MEDICAL HISTORY: 1. Hypertension. 2. Hyperlipidemia. PAST SURGICAL HISTORY: No significant past surgical history. ALLERGIES: NO KNOWN DRUG ALLERGIES. MEDICATIONS: 1. Amlodipine. 2. Metoprolol. SOCIAL HISTORY: He is single, lives alone. Denies smoking, alcohol, or illegal drug use. Vital Signs & Weight: Vital Signs (12 hours) Temp Pulse Resp BP Pulse Ox 02/25/20 18:54 98.0 F 91 16 109/59 L 95 02/25/20 18:31 97.5 F L 02/25/20 15:00 80 18 130/70 02/25/20 14:45 75 18 132/70 02/25/20 14:26 99.9 F H 75 18 132/70 94 L 02/25/20 08:00 96 Weight Admit Weight 118 lb Weight 118 lb I&O: 02/24/20 02/25/20 02/26/20 06:59 06:59 06:59 Intake Total 2201 Output Total 1920 Balance -269 Active Medications Generic Name Dose Route Start Last Admin Trade Name Freq PRN Reason Stop Dose Admin Acetaminophen 650 mg 02/21/20 15:33 02/25/20 14:31 Acetaminophen 325 Mg Tab PO 650 mg Q6H PRN Administration Headache/Fever or Pain Amlodipine Besylate 10 mg 02/21/20 21:00 02/24/20 20:34 Amlodipine 10 Mg Tab PO 10 mg HS JUAN Administration Ciprofloxacin 500 mg 02/23/20 20:00 02/25/20 05:42 Ciprofloxacin 500 Mg Tab PO 02/28/20 06:01 500 mg 0600,1999 JUAN Administration Cyclobenzaprine HCl 5 mg 02/21/20 23:53 02/25/20 03:57 Cyclobenzaprine 10 Mg Tab PO 5 mg TID PRN Administration Muscle Spasm Dextrose/Water 25 gm 02/23/20 06:20 02/23/20 05:40 Dextrose 50% Abboject 50 Ml Syringe SLOW IVP 25 gm 0630 PRN Administration BLOOD GLUCOSE Gabapentin 100 mg 02/22/20 09:00 02/25/20 14:30 Gabapentin 100 Mg Cap PO 100 mg TID [facility] Administration Lidocaine HCl 0 ml 02/22/20 21:13 02/23/20 03:32 Lidocaine 2% Jelly 5 Ml Tube TOP 5 ml WILLCALL PRN Administration Pain Metoprolol Tartrate 25 mg 02/21/20 21:00 02/25/20 09:04 Metoprolol Tartrate 50 Mg Tab PO 25 mg BID [facility] Administration Polyethylene Glycol 17 gm 02/25/20 15:00 02/25/20 14:31 Polyethylene Glycol 3350 17 Gm Packet PO 17 gm TID [facility] Administration Senna/Docusate Sodium 1 tab 02/22/20 21:00 02/25/20 09:05 Senokot S 8.6-50 Mg Tab PO Not Given BID [facility] PHYSICAL EXAMINATION: General Appearance: awake alert General - other findings: Malnourished Eye: anicteric sclera ENT: normocephalic atraumatic Neck: supple Heart: RRR Respiratory: CTAB Gastrointestinal: soft, non-tender Extremities: no edema Skin: no rashes Musculoskeletal: normal tone Psychiatric: normal affect, normal behavior Neurological: Mental status; the patient is alert and oriented to person, place, and time. Speech is clear. Recent and remote memory intact. Fund of knowledge is appropriate. Motor; muscle tone is decreased. Muscle bulk is significantly decreased. Generalized weakness with left upper and lower extremity 4+/5, right upper extremity 3/5, right lower extremity 2/5. Cerebellar; finger-nose testing intact. Gait deferred due to the patient's safety reasons. DATA REVIEWED: I reviewed the MRI of the brain, which was negative for acute intracranial pathology. ASSESSMENT AND PLAN: (1) Constipation by delayed colonic transit Code(s): K59.01 - SLOW TRANSIT CONSTIPATION Status: Chronic (2) Essential hypertension Code(s): I10 - ESSENTIAL (PRIMARY) HYPERTENSION Status: Chronic (3) Severe protein-calorie malnutrition (4) Progressive Neurodegenerative disorder Code(s): E43 - UNSPECIFIED SEVERE PROTEIN-CALORIE MALNUTRITION Status: Chronic (4) Progressive Neurodegenerative disorder Status: Chronic ( Mr. Ang Damon is a 69-year-old male with history significant for progressive neurodegenerative disease, etiology unclear. MRI of the brain negative for acute intracranial process or chronic demyelinating lesions or chronic small vessel disease. EEG ongoing, we will follow up on the results. I had an in-depth discussion with the patient regarding the need for further workup including for evaluation of neurodegenerative disorder, which includes nerve conduction studies and electromyography by a specialist in an outpatient neurology clinic. The patient declined any further workup at this time. He does not want to pursue any more workup regarding his disorder. The etiology remains unclear, most likely an underlying neuromuscular disorder, which needs to be evaluated as outpatient since we do not have the capability to do EMG nerve conduction study as inpatient. The patient would benefit from PT/OT. Continue medical management per primary team. Thank you for the consult. Job ID: [id number] MTDD
--- NOTE | 2020-02-26 13:37 | PDOC.EEG ---
Neurology EEG Report - Report Report: EEG was performed using 24 channel [email or web address] video digital EEG machine with 24 disc electrodes. This was an extended 2-hour 4 minutes of inpatient video EEG recording. Digital analysis of the EEG was done for Driss and seizure detection which revealed no abnormalities. Background: The posterior background rhythm is 10 to 12 Hz the background rhythm attenuates with eye opening and enhances with eye closure. Photic stimulation: Bioccipital symmetric driving response is observed. Hyperventilation: Not performed Sleep: None EEG diagnosis: Normal awake EEG.
--- NOTE | 2020-02-26 15:53 | PDOC.HOSPP ---
- Subjective Encounter Date: 02/26/20 Encounter Time: 14:00 Subjective: Pt seen for followup re: constipation. Denies chest pain. - Objective Vital Signs & Weight: Vital Signs (12 hours) Temp Pulse Resp BP Pulse Ox 02/26/20 07:58 98.1 F 95 16 108/59 L 95 Weight Admit Weight 118 lb Weight 118 lb I&O: 02/25/20 02/26/20 02/27/20 06:59 06:59 06:59 Intake Total 2201 1200 Output Total 2470 Balance -269 1200 Result Diagrams: 02/24/20 06:37 02/24/20 06:36 Additional Labs: Labs and MARs reviewed by [facility] Hospitalist ROS - Review of Systems Cardiovascular: denies: chest pain, palpitations, orthopnea, paroxysmal noc. dyspnea, edema, light headedness Gastrointestinal: reports: constipation. denies: nausea, vomiting, abdominal pain, diarrhea, melena, hematochezia - Medication Medications: Active Medications Generic Name Dose Route Start Last Admin Trade Name Freq PRN Reason Stop Dose Admin Acetaminophen 650 mg 02/21/20 15:33 02/25/20 14:31 Acetaminophen 325 Mg Tab PO 650 mg Q6H PRN Administration Headache/Fever or Pain Amlodipine Besylate 10 mg 02/21/20 21:00 02/25/20 20:58 Amlodipine 10 Mg Tab PO Not Given HS JUAN Ciprofloxacin 500 mg 02/23/20 20:00 02/26/20 06:17 Ciprofloxacin 500 Mg Tab PO 02/28/20 06:01 500 mg 0600,2000 JUAN Administration Cyclobenzaprine HCl 5 mg 02/21/20 23:53 02/26/20 11:03 Cyclobenzaprine 10 Mg Tab PO 5 mg TID PRN Administration Muscle Spasm Dextrose/Water 25 gm 02/23/20 06:20 02/23/20 05:40 Dextrose 50% Abboject 50 Ml Syringe SLOW IVP 25 gm 0630 PRN Administration BLOOD GLUCOSE Gabapentin 100 mg 02/22/20 09:00 02/26/20 15:44 Gabapentin 100 Mg Cap PO Not Given TID JUAN Lidocaine HCl 0 ml 02/22/20 21:13 02/23/20 03:32 Lidocaine 2% Jelly 5 Ml Tube TOP 5 ml WILLCALL PRN Administration Pain Melatonin 3 mg 02/25/20 19:43 02/25/20 20:12 Melatonin 3 Mg Tab PO 3 mg HS PRN Administration Insomnia Metoprolol Tartrate 25 mg 02/21/20 21:00 02/26/20 09:45 Metoprolol Tartrate 50 Mg Tab PO 25 mg BID JUAN Administration Polyethylene Glycol 17 gm 02/25/20 15:00 02/26/20 15:44 Polyethylene Glycol 3350 17 Gm Packet PO 17 gm TID JUAN Administration Senna/Docusate Sodium 1 tab 02/22/20 21:00 02/26/20 09:46 Senokot S 8.6-50 Mg Tab PO Not Given BID JUAN - Exam General Appearance: awake alert Eye: anicteric sclera ENT: moist mucosa Neck: supple Heart: RRR Respiratory: CTAB Gastrointestinal: soft, non-tender Psychiatric: normal affect, normal behavior Hosp A/P (1) Constipation by delayed colonic transit Code(s): K59.01 - SLOW TRANSIT CONSTIPATION Status: Chronic (2) Essential hypertension Code(s): I10 - ESSENTIAL (PRIMARY) HYPERTENSION Status: Chronic (3) Severe protein-calorie malnutrition Code(s): E43 - UNSPECIFIED SEVERE PROTEIN-CALORIE MALNUTRITION Status: Chronic - Plan Status post colonoscopy yesterday. Pt to have colostomy. MRI brain - nil acute.
[2020-02-26] MEDS: Loratadine 10 MG TAB PO PRN (21:30)
[2020-02-26] MEDS: Amlodipine 10 MG TAB PO SCH (23:00)
[2020-02-27] MEDS: Ciprofloxacin 500 MG TAB PO SCH ×2 (06:32→19:41)
[2020-02-27] MEDS: Senokot S 8.6-50 MG TAB PO SCH ×2 (08:13→19:41)
[2020-02-27] MEDS: Gabapentin 100 MG CAP PO SCH ×4 (08:14→19:41)
[2020-02-27] MEDS: Polyethylene Glycol 3350 17 GM Packet PO SCH ×3 (08:15→19:47)
[2020-02-27] MEDS: Metoprolol Tartrate 50 MG TAB PO SCH ×2 (08:15→19:41)
[2020-02-27] MEDS: Acetaminophen 325 MG TAB PO PRN (08:59)
[2020-02-27] MEDS: Cyclobenzaprine 10 MG TAB PO PRN (09:37)
[2020-02-27 11:18] LABS: #Eosinphils 0.3 thou/uL (0.0-0.7); #Lymphocytes 1.1 thou/uL (1.20-3.40); #Monocytes 0.6 thou/uL (0.11-0.59); #Neutrophils 4.2 thou/uL (1.40-6.50); %Basophils 0.5 % (0.0-1.0); %Eosinophils 5.4 % (0.0-10.0); %Lymphocytes 17.9 % (21.0-51.0); %Monocytes 9.1 % (0.0-10.0); Hemoglobin 10.7 g/dL (14.0-18.0); Mean Corpuscular HGB CONC 31.6 g/dL (32.0-36.0); Mean Corpuscular Hemoglobin 31.2 pg (27.0-31.0); Mean Corpuscular Volume 98.6 fL (78.0-98.0); Mean Platelet Volume 6.3 fL (7.4-10.4); Platelet Count 258 thou/uL (130-400); RBC Distribution Width 12.3 % (11.5-14.5); Red Blood Cell (RBC) Count 3.44 mill/uL (4.70-6.10); White Blood Cell (WBC) Count 6.3 thou/uL (4.8-10.8)
[2020-02-27 11:47] LABS: Anion Gap 11 mmol/L (10-20); BUN (Urea Nitrogen) 20 mg/dL (8.4-25.7); Calc. Creatinine Clearance 59 mL/min (70-130); Calcium 8.7 mg/dL (7.8-10.44); Carbon Dioxide 28 mmol/L (23-31); Chloride 104 mmol/L (98-107); Estimated GFR-MDRD 85; Glucose 145 mg/dL (80-115); Potassium 4.2 mmol/L (3.5-5.1); Sodium 139 mmol/L (136-145)
--- NOTE | 2020-02-27 13:45 | PRG ---
DATE OF SERVICE: 02/27/2020 REASON FOR CONSULTATION: Fecal impaction/chronic constipation. SUBJECTIVE: Overnight, the patient did not have any additional bowel movements nor did he have any bowel movement today. Upon conferring with the nursing staff, it seems that he has not had a bowel movement since the colonoscopy performed on February 24. Otherwise, he states that he is doing well with no nausea, vomiting, fevers, chills, hematemesis, melena, or hematochezia. Per review of the patient's chart, he is scheduled for an end colostomy tomorrow, presumably with Dr. Corona. OBJECTIVE: VITAL SIGNS: Temperature 98.2, pulse 87, blood pressure 111/59, respiratory rate 18, and saturating 96% on room air. GENERAL: The patient is lying in bed, in no acute distress. Alert and oriented x4. CARDIOVASCULAR: Regular rate and rhythm. RESPIRATORY: Clear to auscultation bilaterally. ABDOMEN: Normoactive bowel sounds. Soft, nontender, and nondistended. EXTREMITIES: No cyanosis, clubbing, or edema. LABORATORY DATA: No current studies are available for review. IMAGING DATA: No current studies are available for review. ASSESSMENT AND PLAN: The patient is a 69-year-old male with past medical history of hypertension, hyperlipidemia, and an undefined progressive neurological disorder, presenting with fecal impaction/chronic constipation of the entire colon. Chronic constipation/fecal impaction: The patient initially presented with complaints of uncontrollable soft stool/diarrhea and gas intermixed with episodes of having no bowel movement for approximately a week at a time that were unresponsive to enema administration as an outpatient. During the course of this hospitalization, the patient underwent colonoscopy x2, both of which showing a significant amount of retained solid stool even into the right colon. At this time, it is unclear whether or not this degenerating neurological dysfunction is contributing to worsening diarrhea over the years or whether or not this is chronic idiopathic constipation itself. In any case, the patient does have significant weakness with inability to transfer from the bed to the toilet with significant pain and discomfort with defecation. Attempts to improve his constipation with MiraLAX, senna, and more conservative management have been unsuccessful thus far with the patient now slated for colostomy tomorrow to facilitate the passage of stool. RECOMMENDATIONS: 1. We would continue the MiraLAX 3 times daily and encourage the patient to take senna as a prokinetic to remove the remaining stool along in preparation for his procedure tomorrow. 2. We would proceed with end colostomy tomorrow given the patient's debilitated neurological status and significant discomfort/pain with defecation. 3. Continue current diet unless instructed by the General Surgery Service. At this time, we will sign off as there are no additional recommendations at this time with more definitive management tomorrow with colostomy. Please call with any additional questions. Job ID: [id number]
--- NOTE | 2020-02-27 17:45 | PDOC.HOSPP ---
- Subjective Encounter Date: 02/27/20 Encounter Time: 17:45 Subjective: Patient seen in follow-up for chronic constipation. Complains of back pain. - Objective Vital Signs & Weight: Vital Signs (12 hours) Temp Pulse Resp BP Pulse Ox 02/27/20 08:00 98.2 F 87 18 111/59 L 96 Weight Admit Weight 118 lb Weight 118 lb I&O: 02/26/20 02/27/20 02/28/20 06:59 06:59 06:59 Intake Total 2040 Output Total 1400 450 Balance 640 -450 Result Diagrams: 02/27/20 11:11 02/27/20 11:11 Additional Labs: Labs and MAR reviewed by [place] Hospitalist ROS - Review of Systems Cardiovascular: denies: chest pain, palpitations, orthopnea, paroxysmal noc. dyspnea, edema, light headedness Gastrointestinal: denies: nausea, vomiting, abdominal pain, diarrhea, constipation, melena, hematochezia Musculoskeletal: reports: back pain - Medication Medications: Active Medications Generic Name Dose Route Start Last Admin Trade Name Freq PRN Reason Stop Dose Admin Acetaminophen 650 mg 02/21/20 15:33 02/27/20 08:59 Acetaminophen 325 Mg Tab PO 650 mg Q6H PRN Administration Headache/Fever or Pain Amlodipine Besylate 10 mg 02/21/20 21:00 02/26/20 23:00 Amlodipine 10 Mg Tab PO 10 mg HS JUAN Administration Ciprofloxacin 500 mg 02/23/20 20:00 02/27/20 06:32 Ciprofloxacin 500 Mg Tab PO 02/28/20 06:01 500 mg 0600,2000 JUAN Administration Cyclobenzaprine HCl 5 mg 02/21/20 23:53 02/27/20 09:37 Cyclobenzaprine 10 Mg Tab PO 5 mg TID PRN Administration Muscle Spasm Dextrose/Water 25 gm 02/23/20 06:20 02/23/20 05:40 Dextrose 50% Abboject 50 Ml Syringe SLOW IVP 25 gm 0630 PRN Administration BLOOD GLUCOSE Gabapentin 100 mg 02/22/20 09:00 02/27/20 14:20 Gabapentin 100 Mg Cap PO 100 mg TID JUAN Administration Lidocaine HCl 0 ml 02/22/20 21:13 02/23/20 03:32 Lidocaine 2% Jelly 5 Ml Tube TOP 5 ml WILLCALL PRN Administration Pain Loratadine 10 mg 02/26/20 20:45 02/26/20 21:30 Loratadine 10 Mg Tab PO 10 mg DAILYPRN PRN Administration Sinus Symptoms Melatonin 3 mg 02/25/20 19:43 02/25/20 20:12 Melatonin 3 Mg Tab PO 3 mg HS PRN Administration Insomnia Metoprolol Tartrate 25 mg 02/21/20 21:00 02/27/20 08:15 Metoprolol Tartrate 50 Mg Tab PO Not Given BID JUAN Polyethylene Glycol 17 gm 02/25/20 15:00 02/27/20 14:21 Polyethylene Glycol 3350 17 Gm Packet PO 17 gm TID JUAN Administration Senna/Docusate Sodium 1 tab 02/22/20 21:00 02/27/20 08:13 Senokot S 8.6-50 Mg Tab PO Not Given BID JUAN - Exam General Appearance: awake alert Eye: anicteric sclera ENT: moist mucosa Neck: supple Heart: RRR Respiratory: CTAB Gastrointestinal: soft, non-tender Extremities: no edema Skin: no rashes Psychiatric: normal affect, normal behavior Hosp A/P (1) Constipation by delayed colonic transit Code(s): K59.01 - SLOW TRANSIT CONSTIPATION Status: Chronic (2) Essential hypertension Code(s): I10 - ESSENTIAL (PRIMARY) HYPERTENSION Status: Chronic (3) Severe protein-calorie malnutrition Code(s): E43 - UNSPECIFIED SEVERE PROTEIN-CALORIE MALNUTRITION Status: Chronic - Plan Pt to have colostomy tomorrow. Further management depending on how he does after surgery. As needed Flexeril for back pain. It has helped him in the past.
[2020-02-27] MEDS: Amlodipine 10 MG TAB PO SCH (19:41)
[2020-02-28 04:02] LABS: #Eosinphils 0.2 thou/uL (0.0-0.7); #Lymphocytes 1.4 thou/uL (1.20-3.40); #Monocytes 0.8 thou/uL (0.11-0.59); #Neutrophils 5.2 thou/uL (1.40-6.50); %Basophils 0.5 % (0.0-1.0); %Eosinophils 3.2 % (0.0-10.0); %Lymphocytes 18.3 % (21.0-51.0); %Monocytes 10.6 % (0.0-10.0); %Neutrophils 67.4 % (42.0-75.0); Hemoglobin 11.2 g/dL (14.0-18.0); Mean Corpuscular HGB CONC 32.5 g/dL (32.0-36.0); Mean Corpuscular Hemoglobin 31.8 pg (27.0-31.0); Mean Corpuscular Volume 97.8 fL (78.0-98.0); Mean Platelet Volume 7.1 fL (7.4-10.4); Platelet Count 295 thou/uL (130-400); RBC Distribution Width 12.3 % (11.5-14.5); Red Blood Cell (RBC) Count 3.52 mill/uL (4.70-6.10); White Blood Cell (WBC) Count 7.7 thou/uL (4.8-10.8)
[2020-02-28 04:21] LABS: Anion Gap 10 mmol/L (10-20); BUN (Urea Nitrogen) 30 mg/dL (8.4-25.7); Calc. Creatinine Clearance 63 mL/min (70-130); Carbon Dioxide 31 mmol/L (23-31); Chloride 101 mmol/L (98-107); Estimated GFR-MDRD Greater than 90; Glucose 102 mg/dL (80-115); Potassium 4.6 mmol/L (3.5-5.1); Sodium 137 mmol/L (136-145)
[2020-02-28] MEDS: Metoprolol Tartrate 50 MG TAB PO SCH (05:10)
[2020-02-28] MEDS: Ciprofloxacin 500 MG TAB PO SCH (05:40)
[2020-02-28] MEDS: Senokot S 8.6-50 MG TAB PO SCH (07:51)
[2020-02-28] MEDS: Gabapentin 100 MG CAP PO SCH ×2 (07:51→15:19)
[2020-02-28] MEDS: Polyethylene Glycol 3350 17 GM Packet PO SCH ×2 (07:51→15:20)
[2020-02-28] MEDS ORDERED: cefOXitin Sodium/Dextrose 2 GM/50 ML BAG ONE (08:26)
[2020-02-28] MEDS ORDERED: Fentanyl 250 MCG/5 ML VIAL ONE (08:37)
[2020-02-28] MEDS ORDERED: Midazolam HCl 2 mg/2 ml Vial ONE ×2 (08:37→08:38)
[2020-02-28] MEDS ORDERED: Fentanyl 100 MCG/2 ML VIAL ONE (08:38)
[2020-02-28] MEDS ORDERED: EPINEPHrine 1 MG/ML AMP ONE (08:38)
[2020-02-28] MEDS ORDERED: Bupivacaine 0.25% HCL 30 ML VIAL ONE (08:39)
[2020-02-28] MEDS ORDERED: Lidocaine 1% w/Epinephrine 1:100K 20 ML VIAL ONE (08:39)
[2020-02-28] MEDS ORDERED: HYDROcodone/Acetaminophen 7.5/325 mg Tablet PO PRN (10:36)
[2020-02-28] MEDS ORDERED: Morphine 2 MG/ML VIAL SLOW IVP PRN (10:37)
[2020-02-28] MEDS ORDERED: Morphine 4 MG/ML VIAL SLOW IVP PRN (10:37)
[2020-02-28] MEDS ORDERED: Ondansetron HCl/PF 4 MG/2 ML Vial IVP PRN (10:39)
[2020-02-28] MEDS ORDERED: Promethazine HCl 25 MG/ML VIAL IM PRN (10:39)
[2020-02-28] MEDS ORDERED: Promethazine HCl 25 MG/ML VIAL SLOW IVP PRN (10:39)
[2020-02-28] MEDS ORDERED: Lidocaine 1% PF 5 ML VIAL ONE (10:58)
[2020-02-28] MEDS ORDERED: PHENYLEPHRINE-NS 100 MCG/ML 10 ML SYRINGE ONE (10:58)
[2020-02-28] MEDS ORDERED: PROPOFOL 200 MG/20 ML VIAL ONE (10:58)
[2020-02-28] MEDS ORDERED: Glycopyrrolate 0.2 MG/ML 5 ML SYRINGE ONE (10:58)
[2020-02-28] MEDS ORDERED: Dexamethasone 20 MG/5 ML VIAL ONE (10:58)
[2020-02-28] MEDS ORDERED: Ketorolac Tromethamine 30 MG/ML VIAL ONE (10:58)
[2020-02-28] MEDS ORDERED: Ondansetron PF 4 MG/2 ML Vial ONE (10:58)
[2020-02-28] MEDS ORDERED: Rocuronium Bromide 10 MG/ML (10ML VIAL) ONE (10:58)
[2020-02-28] MEDS ORDERED: Bupivacaine HCl 0.5%/Epinephrine 1:200,000/PF 30 ml Vial ONE (10:58)
--- NOTE | 2020-02-28 11:49 | OP ---
DATE OF PROCEDURE: 02/28/2020 PREOPERATIVE DIAGNOSES: Neurodegenerative disorder, chronic constipation, chronic anal stenosis. POSTOPERATIVE DIAGNOSES: Neurodegenerative disorder, chronic constipation, chronic anal stenosis. PROCEDURE PERFORMED: Laparoscopic diverting end colostomy. ANESTHESIA: General. ESTIMATED BLOOD LOSS: Minimal. COMPLICATIONS: None. SPECIMEN: None DESCRIPTION OF PROCEDURE: The patient was taken to the operating room and laid supine on the operating room table. After general anesthetic was obtained, a Floyd was placed. The abdomen was shaved, prepped, and draped in a sterile fashion. An incision was made below the umbilicus. Cautery was used to dissect down to and score the fascia. Abdominal cavity was entered bluntly using a Savita clamp. Holding stitch of PDS was placed on each side of fascia. A 5 mm port was placed. High-flow pneumoperitoneum was obtained. Right lower quadrant 12 mm port as well as a suprapubic 5 mm port were placed. A 5 mm incision and port were placed at the location where the colostomy was planned in the left abdomen. The patient had significant chronic dilation of his entire colon. The colon was able to be run from the rectosigmoid junction up to a large loopy sigmoid colon and then up the descending colon. Transverse colon down into the pelvis as well. Location was found in the sigmoid colon in an area of good that would easily reach up to the colostomy site in the left abdomen. Here cautery was used to dissect on the mesenteric surface of the colon. A small amount of the mesentery was taken down posteriorly using the LigaSure. In this location, a laparoscopic ROSANGELA stapler was fired across the colon. The proximal was grasped with a grasper through the colostomy site port. Again, care was taken to make sure that the proximal colon end was brought out through the colostomy. The 12 mm port site was closed using GraNee needle and 0 Vicryl tie. All ports were removed under direct visualization. Pneumoperitoneum was let down. Incisions were closed using 4-0 Monocryl and Dermabond. In the area, the left abdominal port with a grasper connected was still attached to the colon. A circular incision was made. A cruciate incision was made in the fascia and the end colon was able to be brought up in under no tension. A colostomy was matured in the usual fashion using 3-0 Vicryl. A colostomy device was placed. The patient was sent to Recovery in stable condition. All instrument counts, needle counts, and lap counts were correct. Job ID: [id number]
--- NOTE | 2020-02-28 13:16 | PDOC.PALPN ---
Palliative Progress Note - Subjective Lethargic, post colostomy for neurodegenerative disorder causing chronic consitipation constipation and chronic anal stenosis. - Objective Vital Signs: Vital Signs - Most Recent Temp Pulse Resp BP Pulse Ox 97.3 F L 77 16 119/66 97 02/28/20 12:55 02/28/20 12:55 02/28/20 12:55 02/28/20 12:55 02/28/20 12:55 - Physical Exam Constitutional: cachectic, emaciated, ill appearing HEENT: EOMI, moist MMs, sclera anicteric Respiratory: no rales, no rhonchi, no wheezing, unlabored breathing Cardiovascular: RRR Gastrointestinal: soft, positive bowel sounds Deviation from normal: colostomy Genitourinary: continent Musculoskeletal: diffuse muscle atrophy Deviation from normal: pronounced weakness to lower extremities, right upper Skin: cap refill <2 seconds, bruising, fragile - Assessment (1) Neurological muscle weakness Code(s): M62.81 - MUSCLE WEAKNESS (GENERALIZED) Current Visit: Yes Status: Acute (2) Neurogenic bowel Code(s): K59.2 - NEUROGENIC BOWEL, NOT ELSEWHERE CLASSIFIED Current Visit: Yes Status: Acute (3) Inguinal hernia Code(s): K40.90 - UNIL INGUINAL HERNIA, W/O OBST OR GANGR, NOT SPCF RECUR Current Visit: Yes Status: Chronic (4) Constipation by delayed colonic transit Code(s): K59.01 - SLOW TRANSIT CONSTIPATION Current Visit: Yes Status: Chronic (5) Severe protein-calorie malnutrition Code(s): E43 - UNSPECIFIED SEVERE PROTEIN-CALORIE MALNUTRITION Current Visit: Yes Status: Chronic (6) Palliative care encounter Code(s): Z51.5 - ENCOUNTER FOR PALLIATIVE CARE Current Visit: Yes Status: Acute - Plan Plan: Mr Damon is pleased colostomy was placed. Lethargic postoperatively. Hopeful colostomy will allow dignity in home setting, desires to remain as independent as possible as long as he can. [25] minutes spent on this encounter with >50% of the time in counseling and coordination of care. - ROS Constitutional: weakness ENT: alteration in dentition, dry mouth Musculoskeletal: back pain Neurological: numbness
--- NOTE | 2020-02-28 13:21 | PDOC.FMACP ---
Advance Care Planning - Problem (1) Neurological muscle weakness Status: Acute Code(s): M62.81 - MUSCLE WEAKNESS (GENERALIZED) (2) Neurogenic bowel Status: Acute Code(s): K59.2 - NEUROGENIC BOWEL, NOT ELSEWHERE CLASSIFIED (3) Inguinal hernia Status: Chronic Code(s): K40.90 - UNIL INGUINAL HERNIA, W/O OBST OR GANGR, NOT SPCF RECUR (4) Constipation by delayed colonic transit Status: Chronic Code(s): K59.01 - SLOW TRANSIT CONSTIPATION (5) Severe protein-calorie malnutrition Status: Chronic Code(s): E43 - UNSPECIFIED SEVERE PROTEIN-CALORIE MALNUTRITION (6) Palliative care encounter Status: Acute Code(s): Z51.5 - ENCOUNTER FOR PALLIATIVE CARE - Note Participants: patient, palliative care Summary: Palliative care attempted multiple times to address Advanced Care Planning. The diagnosis, prognosis and goals of care have been discussed. Appropriate forms and documentation to accomplish the goals of care were discussed. All questions were answered. Mr Damon does not, and has relayed several times he does not wish at this time to complete a MPOA, or directives. Continue with full resuscitation. Time Spent (mins): 15
[2020-02-28] MEDS: Cyclobenzaprine 10 MG TAB PO PRN (13:44)
--- NOTE | 2020-02-28 16:55 | PDOC.HOSPP ---
- Subjective Encounter Date: 02/28/20 Encounter Time: 16:54 Subjective: Patient seen in follow-up for chronic constipation. He is sleepy but arousable, not answering questions, could not complete review of systems. - Objective Vital Signs & Weight: Vital Signs (12 hours) Temp Pulse Resp BP BP Pulse Ox 02/28/20 12:55 97.3 F L 77 16 119/66 97 02/28/20 12:25 97.4 F L 75 16 117/67 95 02/28/20 12:10 97.0 F L 68 16 112/62 93 L 02/28/20 11:55 97.4 F L 71 16 116/68 93 L 02/28/20 11:40 97.7 F 70 16 108/63 97 02/28/20 07:18 96 02/28/20 07:02 98.2 F 82 20 117/60 96 Weight Admit Weight 118 lb Weight 118 lb I&O: 02/27/20 02/28/20 02/29/20 06:59 06:59 06:59 Intake Total 2040 1930 Output Total 1400 1650 350 Balance 640 280 -350 Result Diagrams: 02/28/20 03:27 02/28/20 03:27 Additional Labs: Labs and MAR reviewed by me Hospitalist ROS - Review of Systems ROS unobtainable: due to mental status - Medication Medications: Active Medications Generic Name Dose Route Start Last Admin Trade Name Freq PRN Reason Stop Dose Admin Acetaminophen 650 mg 02/21/20 15:33 02/27/20 08:59 Acetaminophen 325 Mg Tab PO 650 mg Q6H PRN Administration Headache/Fever or Pain Amlodipine Besylate 10 mg 02/21/20 21:00 02/27/20 19:41 Amlodipine 10 Mg Tab PO 10 mg HS JUAN Administration Cyclobenzaprine HCl 5 mg 02/21/20 23:53 02/28/20 13:44 Cyclobenzaprine 10 Mg Tab PO 5 mg TID PRN Administration Muscle Spasm Dextrose/Water 25 gm 02/23/20 06:20 02/23/20 05:40 Dextrose 50% Abboject 50 Ml Syringe SLOW IVP 25 gm 0630 PRN Administration BLOOD GLUCOSE Gabapentin 100 mg 02/22/20 09:00 02/28/20 15:19 Gabapentin 100 Mg Cap PO 100 mg TID JUAN Administration Lidocaine HCl 0 ml 02/22/20 21:13 02/23/20 03:32 Lidocaine 2% Jelly 5 Ml Tube TOP 5 ml WILLCALL PRN Administration Pain Loratadine 10 mg 02/26/20 20:45 02/26/20 21:30 Loratadine 10 Mg Tab PO 10 mg DAILYPRN PRN Administration Sinus Symptoms Melatonin 3 mg 02/25/20 19:43 02/25/20 20:12 Melatonin 3 Mg Tab PO 3 mg HS PRN Administration Insomnia Metoprolol Tartrate 25 mg 02/21/20 21:00 02/28/20 05:10 Metoprolol Tartrate 50 Mg Tab PO 25 mg BID JUAN Administration Polyethylene Glycol 17 gm 02/25/20 15:00 02/28/20 15:20 Polyethylene Glycol 3350 17 Gm Packet PO 17 gm TID JUAN Administration Senna/Docusate Sodium 1 tab 02/22/20 21:00 02/28/20 07:51 Senokot S 8.6-50 Mg Tab PO Not Given BID JUAN - Exam General - other findings: Malnourished ENT: moist mucosa Neck: supple Heart: RRR Respiratory: CTAB Gastrointestinal: soft, non-tender Gastrointestinal - other findings: Colostomy Skin: no rashes Psychiatric: lethargic Hosp A/P (1) Constipation by delayed colonic transit Code(s): K59.01 - SLOW TRANSIT CONSTIPATION Status: Chronic (2) Essential hypertension Code(s): I10 - ESSENTIAL (PRIMARY) HYPERTENSION Status: Chronic (3) Severe protein-calorie malnutrition Code(s): E43 - UNSPECIFIED SEVERE PROTEIN-CALORIE MALNUTRITION Status: Chronic - Plan Let us post colostomy today. Patient admitted under GI service, general surgery service following. Continue as needed Flexeril for back pain. Needs discharge planning.
[2020-02-29] MEDS: Gabapentin 100 MG CAP PO SCH ×4 (00:11→23:50)
[2020-02-29] MEDS: Metoprolol Tartrate 50 MG TAB PO SCH ×3 (00:15→23:50)
[2020-02-29] MEDS: Amlodipine 10 MG TAB PO SCH ×2 (00:15→23:50)
[2020-02-29] MEDS: Melatonin 3 MG TAB PO PRN (00:15)
[2020-02-29] MEDS: Senokot S 8.6-50 MG TAB PO SCH ×3 (00:15→23:50)
[2020-02-29] MEDS: Polyethylene Glycol 3350 17 GM Packet PO SCH ×4 (00:16→23:50)
[2020-02-29] MEDS: Cyclobenzaprine 10 MG TAB PO PRN (00:31)
[2020-02-29] MEDS: HYDROcodone/Acetaminophen 7.5/325 mg Tablet PO PRN ×2 (06:37→17:45)
[2020-02-29 06:47] LABS: #Lymphocytes 1.2 thou/uL (1.20-3.40); #Monocytes 0.9 thou/uL (0.11-0.59); #Neutrophils 10.1 thou/uL (1.40-6.50); %Basophils 0.1 % (0.0-1.0); %Eosinophils 0.1 % (0.0-10.0); %Lymphocytes 10.1 % (21.0-51.0); %Neutrophils 82.7 % (42.0-75.0); Hemoglobin 10.1 g/dL (14.0-18.0); Mean Corpuscular HGB CONC 31.8 g/dL (32.0-36.0); Mean Corpuscular Hemoglobin 31.8 pg (27.0-31.0); Platelet Count 287 thou/uL (130-400); RBC Distribution Width 12.2 % (11.5-14.5); Red Blood Cell (RBC) Count 3.16 mill/uL (4.70-6.10); White Blood Cell (WBC) Count 12.2 thou/uL (4.8-10.8)
[2020-02-29 07:05] LABS: Anion Gap 10 mmol/L (10-20); BUN (Urea Nitrogen) 30 mg/dL (8.4-25.7); Calc. Creatinine Clearance 60 mL/min (70-130); Carbon Dioxide 30 mmol/L (23-31); Chloride 101 mmol/L (98-107); Estimated GFR-MDRD 86; Glucose 125 mg/dL (80-115); Potassium 4.9 mmol/L (3.5-5.1); Sodium 136 mmol/L (136-145)
--- NOTE | 2020-02-29 07:46 | PDOC.GSPN ---
Surgery Progress Note: Subj - Subjective Patient reports: pain well controlled (pt complained of diffuse pain in the low er abdomen and around the incision sites early in the morning, and states that he received hydrocodone pills for the pain. He states that it has just started kicking in and feels better.), tolerating liquids well Surgery Progress Note: Obj - Vital signs Vital signs: Vital Signs - Most Recent Temp Pulse Resp BP Pulse Ox 98.5 F 84 14 105/61 95 02/29/20 07:12 02/29/20 07:12 02/29/20 07:12 02/29/20 07:12 02/29/20 07:12 - Physical Exam General: no distress, moderate pain Cardiovascular: regular rate and rhythm, no murmur Respiratory: clear to auscultation Abdomen: distended, tender Wound: healing well Surgery Progress Note: Results - Labs Result Diagrams: 02/29/20 06:22 02/29/20 06:22 Lab results: Laboratory Results - last 12 hr 02/29/20 02/29/20 06:22 06:22 WBC 12.2 H RBC 3.16 L Hgb 10.1 L Hct 31.6 L MCV 100.0 H MCH 31.8 H MCHC 31.8 L RDW 12.2 Plt Count 287 MPV 7.0 L Neutrophils % 82.7 H Lymphocytes % 10.1 L Monocytes % 7.0 Eosinophils % 0.1 Basophils % 0.1 Neutrophils # 10.1 H Lymphocytes # 1.2 Monocytes # 0.9 H Eosinophils # 0.0 Basophils # 0.0 Sodium 136 Potassium 4.9 Chloride 101 Carbon Dioxide 30 Anion Gap 10 BUN 30 H Creatinine 0.88 Estimated GFR (MDRD) 86 Glucose 125 H Calcium 9.0 Surgery Progress Note: A/P - Problem (1) Neurogenic bowel Current Visit: Yes Code(s): K59.2 - NEUROGENIC BOWEL, NOT ELSEWHERE CLASSIFIED Status: Acute - Plan Plan: Mr. Damon is a 69 yo male 1 day status post colostomy for neurodegenerative disorder causing chronic constipation. Today, he states that he is feeling well overall. He had diffuse lower abdominal pain in earlier this morning, and took hydrocodone pills, which is alleviating the pain. Rivera output at 1450mL. He is tolerating liquids well. Pt denies fever and chills. Plan: Continue monitoring rivera output, labs, and vitals. Consult wound care team for colostomy care education. Addendum - Physician - Physician Attestation Date/Time: 02/29/20 1027 I personally performed or re-performed the physical examination and medical decision making. I have verified all student documentation or findings, including history, physical exam and/or medical decision making. Doing well. Advance diet. Home health Better for his family for him to be DC'd on Tuesday Dr. alas covering for me this weekend.
[2020-02-29] MEDS: Loratadine 10 MG TAB PO PRN (17:40)
--- NOTE | 2020-02-29 19:06 | PDOC.HOSPP ---
- Subjective Encounter Date: 02/29/20 Encounter Time: 19:04 Subjective: Seen for follow-up regarding constipation. He denies any new complaints. - Objective Vital Signs & Weight: Vital Signs (12 hours) Temp Pulse Resp BP Pulse Ox 02/29/20 08:00 95 02/29/20 07:12 98.5 F 84 14 105/61 95 Weight Admit Weight 118 lb Weight 118 lb I&O: 02/28/20 02/29/20 03/01/20 06:59 06:59 06:59 Intake Total 1930 1970 657 Output Total 1649 2049 350 Balance 280 -80 307 Result Diagrams: 02/29/20 06:22 02/29/20 06:22 Additional Labs: Labs and MAR reviewed by ok Hospitalist ROS - Review of Systems Constitutional: denies: fever, chills, sweats, weakness, malaise Cardiovascular: denies: chest pain, palpitations, orthopnea, paroxysmal noc. dy spnea, edema, light headedness - Medication Medications: Active Medications Generic Name Dose Route Start Last Admin Trade Name Freq PRN Reason Stop Dose Admin Acetaminophen 650 mg 02/21/20 15:33 02/27/20 08:59 Acetaminophen 325 Mg Tab PO 650 mg Q6H PRN Administration Headache/Fever or Pain Hydrocodone Bitart/Acetaminophen 2 tab 02/28/20 10:36 02/29/20 17:45 Hydrocodone/Acetaminophen 7.5/325 Mg Tablet PO 2 tab Q6H PRN Administration Moderate Pain (4-6) Amlodipine Besylate 10 mg 02/21/20 21:00 02/29/20 00:15 Amlodipine 10 Mg Tab PO 10 mg HS JUAN Administration Cyclobenzaprine HCl 5 mg 02/21/20 23:53 02/29/20 00:31 Cyclobenzaprine 10 Mg Tab PO 5 mg TID PRN Administration Muscle Spasm Dextrose/Water 25 gm 02/23/20 06:20 02/23/20 05:40 Dextrose 50% Abboject 50 Ml Syringe SLOW IVP 25 gm 0630 PRN Administration BLOOD GLUCOSE Gabapentin 100 mg 02/22/20 09:00 02/29/20 17:40 Gabapentin 100 Mg Cap PO 100 mg TID JUAN Administration Lidocaine HCl 0 ml 02/22/20 21:13 02/23/20 03:32 Lidocaine 2% Jelly 5 Ml Tube TOP 5 ml WILLCALL PRN Administration Pain Loratadine 10 mg 02/26/20 20:45 02/29/20 17:40 Loratadine 10 Mg Tab PO 10 mg DAILYPRN PRN Administration Sinus Symptoms Melatonin 3 mg 02/25/20 19:43 02/29/20 00:15 Melatonin 3 Mg Tab PO 3 mg HS PRN Administration Insomnia Metoprolol Tartrate 25 mg 02/21/20 21:00 02/29/20 08:21 Metoprolol Tartrate 50 Mg Tab PO 25 mg BID JUAN Administration Polyethylene Glycol 17 gm 02/25/20 15:00 02/29/20 17:41 Polyethylene Glycol 3350 17 Gm Packet PO 17 gm TID JUAN Administration Senna/Docusate Sodium 1 tab 02/22/20 21:00 02/29/20 08:22 Senokot S 8.6-50 Mg Tab PO 1 tab BID JUAN Administration - Exam General Appearance: awake alert Eye: anicteric sclera ENT: moist mucosa Neck: supple Heart: RRR Respiratory: CTAB Gastrointestinal: soft Gastrointestinal - other findings: Ostomy Psychiatric: normal affect Hosp A/P (1) Constipation by delayed colonic transit Code(s): K59.01 - SLOW TRANSIT CONSTIPATION Status: Chronic (2) Essential hypertension Code(s): I10 - ESSENTIAL (PRIMARY) HYPERTENSION Status: Chronic (3) Severe protein-calorie malnutrition Code(s): E43 - UNSPECIFIED SEVERE PROTEIN-CALORIE MALNUTRITION Status: Chronic - Plan Patient is a pleasant 69-year-old gentleman who was admitted under gastroenterology service on February 21, 2020 for chronic constipation Secondary to undefined progressive neurological deterioration. He had bowel prep and multiple colonoscopies but the bowel prep was not effective at draining the colon. He was seen by neurology service to determine the etiology of the neurological deficit causing chronic constipation. Normal sinus rhythm on telemetry and MRI of the brain were unremarkable. He was also seen by general surgery service and underwent colostomy on February 28, 2020. Status post colostomy Patient admitted under GI service, general surgery service following. Flexeril for back pain as needed. Needs discharge planning.
[2020-03-01] MEDS: Cyclobenzaprine 10 MG TAB PO PRN (01:30)
[2020-03-01 04:43] LABS: #Basophils 0.1 thou/uL (0.0-0.2); #Eosinphils 0.2 thou/uL (0.0-0.7); #Lymphocytes 1.5 thou/uL (1.20-3.40); #Monocytes 0.9 thou/uL (0.11-0.59); #Neutrophils 6.7 thou/uL (1.40-6.50); %Basophils 0.7 % (0.0-1.0); %Eosinophils 1.7 % (0.0-10.0); %Lymphocytes 15.7 % (21.0-51.0); %Monocytes 10.1 % (0.0-10.0); %Neutrophils 71.9 % (42.0-75.0); Mean Corpuscular HGB CONC 32.7 g/dL (32.0-36.0); Mean Corpuscular Hemoglobin 32.4 pg (27.0-31.0); Mean Corpuscular Volume 98.9 fL (78.0-98.0); Mean Platelet Volume 7.2 fL (7.4-10.4); Platelet Count 293 thou/uL (130-400); RBC Distribution Width 12.3 % (11.5-14.5); White Blood Cell (WBC) Count 9.3 thou/uL (4.8-10.8)
[2020-03-01 05:09] LABS: Anion Gap 12 mmol/L (10-20); BUN (Urea Nitrogen) 33 mg/dL (8.4-25.7); Calc. Creatinine Clearance 57 mL/min (70-130); Calcium 9.1 mg/dL (7.8-10.44); Carbon Dioxide 30 mmol/L (23-31); Chloride 100 mmol/L (98-107); Estimated GFR-MDRD 82; Glucose 95 mg/dL (80-115); Potassium 4.7 mmol/L (3.5-5.1); Sodium 137 mmol/L (136-145)
[2020-03-01] MEDS: Loratadine 10 MG TAB PO PRN (06:29)
[2020-03-01] MEDS ORDERED: Sodium Chloride 0.65% Nasal 44 ML BOT EA NARE PRN (08:53)
[2020-03-01] MEDS ORDERED: Ondansetron PF 4 MG/2 ML Vial IVP PRN (08:53)
[2020-03-01] MEDS ORDERED: Zolpidem Tartrate 5 MG TAB PO PRN (08:53)
[2020-03-01] MEDS ORDERED: Bisacodyl 5 MG TAB PO PRN (08:53)
[2020-03-01] MEDS ORDERED: Diabetic Tussin 200 MG/10 ML UDCUP PO PRN (08:53)
[2020-03-01] MEDS ORDERED: Ondansetron ODT 4 MG TAB PO PRN (08:53)
[2020-03-01] MEDS ORDERED: hydrALAZINE 20 MG/ML VIAL SLOW IVP PRN (08:53)
[2020-03-01] MEDS ORDERED: Cepastat Lozenges 1 LOZ PO PRN (08:53)
[2020-03-01] MEDS ORDERED: Calcium Carbonate 500 MG ChewTAB PO PRN (08:53)
[2020-03-01] MEDS: Polyethylene Glycol 3350 17 GM Packet PO SCH ×3 (09:29→19:36)
[2020-03-01] MEDS: Gabapentin 100 MG CAP PO SCH ×3 (09:29→19:36)
[2020-03-01] MEDS: Metoprolol Tartrate 50 MG TAB PO SCH ×2 (09:30→19:36)
[2020-03-01] MEDS: Senokot S 8.6-50 MG TAB PO SCH ×2 (09:31→19:36)
--- NOTE | 2020-03-01 10:41 | PDOC.HOSPP ---
- Subjective Encounter Date: 03/01/20 Encounter Time: 07:15 Subjective: Patient seen and examined bedside today, no overnight event, patient is doing relatively better, - Objective Vital Signs & Weight: Vital Signs (12 hours) Temp Pulse Resp BP BP Pulse Ox 03/01/20 08:18 98.5 F 95 18 108/52 L 95 02/29/20 23:50 90 121/61 Weight Admit Weight 118 lb Weight 118 lb I&O: 02/29/20 03/01/20 03/02/20 06:59 06:59 06:59 Intake Total 1970 897 Output Total 2049 1749 Balance -80 -853 Result Diagrams: 03/01/20 03:52 03/01/20 03:52 Hospitalist ROS - Review of Systems Constitutional: reports: weakness, malaise. denies: fever, chills, sweats, other ENT: denies: ear pain, ear discharge, nose pain, nose discharge, nose congestion, mouth pain, mouth swelling, throat pain, throat swelling, other Respiratory: denies: cough, dry, shortness of breath, hemoptysis, SOB with excertion, pleuritic pain, sputum, wheezing, other Cardiovascular: denies: chest pain, palpitations, orthopnea, paroxysmal noc. dyspnea, edema, light headedness, other Gastrointestinal: denies: nausea, vomiting, abdominal pain, diarrhea, constipation, melena, hematochezia, other Genitourinary: denies: dysuria, frequency, incontinence, hematuria, retention, other Neurological: reports: weakness. denies: numbness, incoordination, change in speech, confusion, seizures, other - Medication Medications: Active Medications Generic Name Dose Route Start Last Admin Trade Name Freq PRN Reason Stop Dose Admin Acetaminophen 650 mg 02/21/20 15:33 02/27/20 08:59 Acetaminophen 325 Mg Tab PO 650 mg Q6H PRN Administration Headache/Fever or Pain Hydrocodone Bitart/Acetaminophen 2 tab 02/28/20 10:36 02/29/20 17:45 Hydrocodone/Acetaminophen 7.5/325 Mg Tablet PO 2 tab Q6H PRN Administration Moderate Pain (4-6) Amlodipine Besylate 10 mg 02/21/20 21:00 02/29/20 23:50 Amlodipine 10 Mg Tab PO 10 mg HS JUAN Administration Cyclobenzaprine HCl 5 mg 02/21/20 23:53 03/01/20 01:30 Cyclobenzaprine 10 Mg Tab PO 5 mg TID PRN Administration Muscle Spasm Dextrose/Water 25 gm 02/23/20 06:20 02/23/20 05:40 Dextrose 50% Abboject 50 Ml Syringe SLOW IVP 25 gm 0630 PRN Administration BLOOD GLUCOSE Gabapentin 100 mg 02/22/20 09:00 03/01/20 09:29 Gabapentin 100 Mg Cap PO 100 mg TID JUAN Administration Lidocaine HCl 0 ml 02/22/20 21:13 02/23/20 03:32 Lidocaine 2% Jelly 5 Ml Tube TOP 5 ml WILLCALL PRN Administration Pain Loratadine 10 mg 02/26/20 20:45 03/01/20 06:29 Loratadine 10 Mg Tab PO 10 mg DAILYPRN PRN Administration Sinus Symptoms Melatonin 3 mg 02/25/20 19:43 02/29/20 00:15 Melatonin 3 Mg Tab PO 3 mg HS PRN Administration Insomnia Metoprolol Tartrate 25 mg 02/21/20 21:00 03/01/20 09:30 Metoprolol Tartrate 50 Mg Tab PO 25 mg BID JUAN Administration Polyethylene Glycol 17 gm 02/25/20 15:00 03/01/20 09:29 Polyethylene Glycol 3350 17 Gm Packet PO 17 gm TID JUAN Administration Senna/Docusate Sodium 1 tab 02/22/20 21:00 03/01/20 09:31 Senokot S 8.6-50 Mg Tab PO 1 tab BID JUAN Administration - Exam General Appearance: NAD, awake alert, ill appearing Eye: PERRL, anicteric sclera ENT: normocephalic atraumatic, no oropharyngeal lesions Neck: supple, symmetric, no JVD, no thyromegaly Heart: RRR, no murmur, no gallops, no rubs Respiratory: CTAB, no wheezes, no rales, no ronchi Gastrointestinal: soft, non-tender, non-distended, normal bowel sounds Gastrointestinal - other findings: Colostomy in place Extremities: no clubbing, no edema Skin: normal turgor, no lesions Musculoskeletal: generalized weakness, diffuse muscle atrophy Psychiatric: normal affect, normal behavior, A&O x 3 Hosp A/P (1) Neurogenic bowel Code(s): K59.2 - NEUROGENIC BOWEL, NOT ELSEWHERE CLASSIFIED Status: Chronic (2) Neurological muscle weakness Code(s): M62.81 - MUSCLE WEAKNESS (GENERALIZED) Status: Chronic (3) Constipation by delayed colonic transit Code(s): K59.01 - SLOW TRANSIT CONSTIPATION Status: Chronic (4) Severe protein-calorie malnutrition Code(s): E43 - UNSPECIFIED SEVERE PROTEIN-CALORIE MALNUTRITION Status: Chronic (5) Essential hypertension Code(s): I10 - ESSENTIAL (PRIMARY) HYPERTENSION Status: Chronic - Plan old records reviewed/req Neurodegenerative disorder Chronic constipation Chronic anal stenosis S/p laparoscopic diverting end colostomy Plan Continue colostomy [facility] health on discharge Plan for discharge on Tuesday Medication reviewed and continue provide symptomatic and supportive care
--- NOTE | 2020-03-01 15:50 | PRG ---
DATE OF SERVICE: 03/01/2020 SUBJECTIVE: Mr. Damon is postoperative day #2 from laparoscopic colostomy creation for chronic constipation. He has no complaints at this time. He is eating well. He has had stool output from his ostomy. He already has home health nursing at home to assist him with ostomy care. PHYSICAL EXAMINATION: VITAL SIGNS: He is afebrile. Pulse is 95, blood pressure 108/52. LUNGS: Clear to auscultation. CARDIAC: Regular rate and rhythm. ABDOMEN: Soft, nontender, nondistended. Bowel sounds are present and normoactive. Laparoscopic incisions are healing appropriately. He does have a huge scrotum that I presume is a large inguinal hernia. LABORATORY DATA: Basic metabolic panel and CBC are essentially normal with no significant change. He has mild anemia with a hemoglobin of 10. ASSESSMENT: He is stable following laparoscopic colostomy creation. He is eating well and ostomy is functioning. He is certainly clear from a surgical standpoint for discharge at any time. Home health nursing will be of assistance to help him with ostomy care, but I am told he already has home health nursing available. I will sign off from a surgical standpoint. Please contact us if we can be of further assistance. Job ID: [id number]
[2020-03-01] MEDS: Amlodipine 10 MG TAB PO SCH (19:41)
[2020-03-01] MEDS: HYDROcodone/Acetaminophen 7.5/325 mg Tablet PO PRN (21:52)
[2020-03-02] MEDS: Polyethylene Glycol 3350 17 GM Packet PO SCH ×3 (08:48→20:14)
[2020-03-02] MEDS: Metoprolol Tartrate 50 MG TAB PO SCH ×2 (08:48→20:12)
[2020-03-02] MEDS: Senokot S 8.6-50 MG TAB PO SCH ×2 (08:49→20:11)
[2020-03-02] MEDS: Gabapentin 100 MG CAP PO SCH ×3 (08:49→20:11)
--- NOTE | 2020-03-02 09:23 | PDOC.HOSPP ---
- Subjective Encounter Date: 03/02/20 Encounter Time: 07:10 Subjective: Patient seen and examined. No new complaints. No overnight events - Objective Vital Signs & Weight: Vital Signs (12 hours) Temp Pulse Resp BP Pulse Ox 03/02/20 07:53 98.3 F 80 18 131/69 97 Weight Admit Weight 118 lb Weight 118 lb I&O: 03/01/20 03/02/20 03/03/20 06:59 06:59 06:59 Intake Total 897 7267 Output Total 7733 8378 Balance -964 -878 Result Diagrams: 03/01/20 03:52 03/01/20 03:52 Hospitalist ROS - Review of Systems ENT: denies: ear pain, ear discharge, nose pain, nose discharge, nose congestion, mouth pain, mouth swelling, throat pain, throat swelling, other Respiratory: denies: cough, dry, shortness of breath, hemoptysis, SOB with excertion, pleuritic pain, sputum, wheezing, other Cardiovascular: denies: chest pain, palpitations, orthopnea, paroxysmal noc. dyspnea, edema, light headedness, other Gastrointestinal: denies: nausea, vomiting, abdominal pain, diarrhea, constipation, melena, hematochezia, other Genitourinary: denies: dysuria, frequency, incontinence, hematuria, retention, other Musculoskeletal: denies: neck pain, shoulder pain, arm pain, back pain, hand pain, leg pain, foot pain, other - Medication Medications: Active Medications Generic Name Dose Route Start Last Admin Trade Name Freq PRN Reason Stop Dose Admin Acetaminophen 650 mg 02/21/20 15:33 02/27/20 08:59 Acetaminophen 325 Mg Tab PO 650 mg Q6H PRN Administration Headache/Fever or Pain Hydrocodone Bitart/Acetaminophen 2 tab 02/28/20 10:36 03/01/20 21:52 Hydrocodone/Acetaminophen 7.5/325 Mg Tablet PO 2 tab Q6H PRN Administration Moderate Pain (4-6) Amlodipine Besylate 10 mg 02/21/20 21:00 03/01/20 19:41 Amlodipine 10 Mg Tab PO Not Given HS JUAN Cyclobenzaprine HCl 5 mg 02/21/20 23:53 03/01/20 01:30 Cyclobenzaprine 10 Mg Tab PO 5 mg TID PRN Administration Muscle Spasm Dextrose/Water 25 gm 02/23/20 06:20 02/23/20 05:40 Dextrose 50% Abboject 50 Ml Syringe SLOW IVP 25 gm 0630 PRN Administration BLOOD GLUCOSE Gabapentin 100 mg 02/22/20 09:00 03/02/20 08:49 Gabapentin 100 Mg Cap PO 100 mg TID JUAN Administration Lidocaine HCl 0 ml 02/22/20 21:13 02/23/20 03:32 Lidocaine 2% Jelly 5 Ml Tube TOP 5 ml WILLCALL PRN Administration Pain Loratadine 10 mg 02/26/20 20:45 03/01/20 06:29 Loratadine 10 Mg Tab PO 10 mg DAILYPRN PRN Administration Sinus Symptoms Melatonin 3 mg 02/25/20 19:43 02/29/20 00:15 Melatonin 3 Mg Tab PO 3 mg HS PRN Administration Insomnia Metoprolol Tartrate 25 mg 02/21/20 21:00 03/02/20 08:48 Metoprolol Tartrate 50 Mg Tab PO 25 mg BID JUAN Administration Polyethylene Glycol 17 gm 02/25/20 15:00 03/02/20 08:48 Polyethylene Glycol 3350 17 Gm Packet PO 17 gm TID JUAN Administration Senna/Docusate Sodium 1 tab 02/22/20 21:00 03/02/20 08:49 Senokot S 8.6-50 Mg Tab PO 1 tab BID JUAN Administration - Exam General Appearance: NAD, awake alert Eye: PERRL, anicteric sclera ENT: normocephalic atraumatic, no oropharyngeal lesions Neck: supple, symmetric, no JVD, no thyromegaly Heart: RRR, no murmur, no gallops, no rubs Respiratory: no wheezes, no rales, no ronchi Gastrointestinal: soft, non-tender, non-distended, normal bowel sounds Gastrointestinal - other findings: Colostomy in place Extremities: no edema Skin: normal turgor, no lesions Musculoskeletal: generalized weakness, diffuse muscle atrophy Psychiatric: normal affect, normal behavior, A&O x 3 Hosp A/P (1) Neurogenic bowel Code(s): K59.2 - NEUROGENIC BOWEL, NOT ELSEWHERE CLASSIFIED Status: Chronic (2) Neurological muscle weakness Code(s): M62.81 - MUSCLE WEAKNESS (GENERALIZED) Status: Chronic (3) Constipation by delayed colonic transit Code(s): K59.01 - SLOW TRANSIT CONSTIPATION Status: Chronic (4) Severe protein-calorie malnutrition Code(s): E43 - UNSPECIFIED SEVERE PROTEIN-CALORIE MALNUTRITION Status: Chronic (5) Essential hypertension Code(s): I10 - ESSENTIAL (PRIMARY) HYPERTENSION Status: Chronic - Plan old records reviewed/req Neurodegenerative disorder Chronic constipation Chronic anal stenosis S/p laparoscopic diverting end colostomy Plan Continue colostomy long term health on discharge We will consider discharge tomorrow Medication reviewed and continue provide symptomatic and supportive care
[2020-03-02] MEDS: Amlodipine 10 MG TAB PO SCH (20:12)
[2020-03-02] MEDS: HYDROcodone/Acetaminophen 7.5/325 mg Tablet PO PRN (22:48)
[2020-03-03] MEDS: Acetaminophen 325 MG TAB PO PRN (06:01)
[2020-03-03] MEDS: Gabapentin 100 MG CAP PO SCH (07:53)
[2020-03-03] MEDS: Polyethylene Glycol 3350 17 GM Packet PO SCH (07:53)
[2020-03-03] MEDS: Senokot S 8.6-50 MG TAB PO SCH (07:53)
[2020-03-03] MEDS: Metoprolol Tartrate 50 MG TAB PO SCH (07:55)
[2020-03-03 08:04] VITALS: BP 105/62; TEMP 97.8
--- NOTE | 2020-03-03 09:50 | PDOC.DS.DS ---
Provider - Provider Date of Admission: 02/22/20 14:10 Date of Discharge: 03/03/20 Admitting Provider: Eligio Kaplan MD Consultations: General Surgery Primary Care Physician: Eligio Priest MD Course - Hospital Course Hospital Course: 69-year-old male who was admitted by gastroenterology for neurogenic bladder, patient was plan for colonoscopy but it was not successful, patient has chronic constipation and he has underlying neurodegenerative disorder, during this admission patient underwent diverting end colostomy, general surgery was following. Neurology was also following for his chronic degenerative neurological disorder, patient has associated neurogenic bladder and motor weakness, patient also has protein calorie malnutrition. Palliative care was also following during this admission. Patient remained stable after surgery and patient is plan for discharge today with home health. Necessary arrangement for colostomy care was arranged by case assembler. Procedures: S/p incomplete colonoscopy S/p laparoscopic diverting end colostomy Resuscitation Status: 02/21/20 15:35 Resuscitation Status Routine Co-Sign Provider: Resuscitation Status: FULL: Full Resuscitation - Labs Lab Results: 03/01/20 03:52 03/01/20 03:52 Microbiology - Entire Visit 02/23/20 04:30 Urine Straight Catheter Urine Culture - Final Proteus mirabilis - Diagnostic Interpretation Other Additional comments: Ultrasound lower extremity negative for DVT Abdominal x-ray negative for any acute process moderate bowel dilation EEG normal Brain MRI chronic small vessel ischemic changes - Physical Exam Vitals: Vital Signs (12 hours) Temp Pulse Resp BP Pulse Ox 03/03/20 08:00 97.8 F 85 16 105/62 97 Weight Admit Weight 118 lb Weight 118 lb Physical Exam: The patient was seen and examined on the day of discharge. General patient is currently alert awake no acute distress Head normocephalic atraumatic Neck supple no JVD no meningeal signs of irritation Lungs clear to auscultation without any rhonchi rales Cardiac S1-S2 regular no murmur no gallop no rub Abdomen colostomy in place, Extremity no edema diffuse muscular atrophy Psychiatric normal affect Problem - Problem (1) Neurogenic bowel Code(s): K59.2 - NEUROGENIC BOWEL, NOT ELSEWHERE CLASSIFIED Status: Chronic (2) Neurological muscle weakness Code(s): M62.81 - MUSCLE WEAKNESS (GENERALIZED) Status: Chronic (3) Constipation by delayed colonic transit Code(s): K59.01 - SLOW TRANSIT CONSTIPATION Status: Chronic (4) Severe protein-calorie malnutrition Code(s): E43 - UNSPECIFIED SEVERE PROTEIN-CALORIE MALNUTRITION Status: Chronic (5) Essential hypertension Code(s): I10 - ESSENTIAL (PRIMARY) HYPERTENSION Status: Chronic Plan - Discharge Medications Prescriptions: Polyethylene Glycol 3350 [Miralax] 17 gm PO TID #90 pk Home Medications: Medication Instructions Recorded Confirmed Type Metoprolol Tartrate [Lopressor] 25 mg PO BID 06/18/13 02/21/20 History Amlodipine Besylate [amLODIPine 10 mg PO HS 12/19/19 02/21/20 History Besylate] Cyclobenzaprine [Flexeril] 5 mg PO TID PRN 02/21/20 02/21/20 History Gabapentin 100 mg PO TID 02/21/20 02/21/20 History Polyethylene Glycol 3350 [Miralax] 17 gm PO TID #90 pk 03/03/20 Rx Allergies: No Known Allergies Allergy (Verified 07/14/19 05:54) - Discharge Instructions Activity:: Activity as Tolerated Nourishment:: Regular Diet Therapies:: Home Health Equipment/Supplies:: Not Applicable IV Therapy:: Not Applicable - Follow up Plan Referrals: Eligio Priest MD [Primary Care Provider] - 7 Days (Call after discharge to schedule follow-up appointment) Anthony Corona MD [Active] - 14 Days (Call after discharge to schedule follow-up appointment) Disposition: HOME HEALTH Quality - Care Measures CORE MEASURES:: N/A
== END 2020-03-03 11:14 | disposition home health service (06) | DRG 329 ==
LOC: ONC 02-21 09:39 → OBSVTOIN 02-22 14:10 → SURG A 02-28 08:35 → ONC 02-28 11:11
PROVIDERS: ADMIT Internal Medicine; ATTEND Internal Medicine
PROC: 0DCP8ZZ Extirpation of Matter from Rectum, Via Natural or Artificial Opening Endoscopic (ICD-10-PCS; 2020-02-23)
PROC: 0DJD8ZZ Inspection of Lower Intestinal Tract, Via Natural or Artificial Opening Endoscopic (ICD-10-PCS; 2020-02-25)
PROC: 0D1N4Z4 Bypass Sigmoid Colon to Cutaneous, Percutaneous Endoscopic Approach (ICD-10-PCS; principal; 2020-02-28)
DX: K59.2 Neurogenic bowel, not elsewhere classified (principal); E43 Unspecified severe protein-calorie malnutrition; Z68.1 Body mass index [BMI] 19.9 or less, adult; R64 Cachexia; N39.0 Urinary tract infection, site not specified; Z51.5 Encounter for palliative care; Z20.828 Contact with and (suspected) exposure to other viral communicable diseases; K59.01 Slow transit constipation; I10 Essential (primary) hypertension; E78.5 Hyperlipidemia, unspecified; L98.419 Non-pressure chronic ulcer of buttock with unspecified severity; F17.210 Nicotine dependence, cigarettes, uncomplicated; K40.90 Unilateral inguinal hernia, without obstruction or gangrene, not specified as recurrent; K64.4 Residual hemorrhoidal skin tags; K64.8 Other hemorrhoids; K62.4 Stenosis of anus and rectum; Z79.899 Other long term (current) drug therapy; Z28.21 Immunization not carried out because of patient refusal
CPT/HCPCS: 36415; 36416; 51701; 51798; 70553; 74018; 80048; 81001; 83735; 84439; 84443; 85025; 87077; 87086; 87186; 87635; 95712; 95819; 95957; A9579; G0378; G0379; J0171; J0694; J1100; J1885; J2250; J2405; J2704; J3010; Q0162; S0020; U0003

== ENCOUNTER 2020-05-09 19:17 | Inpatient (IN) | payer MEDICARE ==
[~2020-05-09 19:17] MED LIST: Iopamidol-370 76% 500 ML 1 ML ONE
[2020-05-09] MEDS ORDERED: Fentanyl 100 MCG/2 ML VIAL ONE ×2 (20:50→21:58)
--- NOTE | 2020-05-09 21:35 | RAD ---
RIGHT HIP TWO VIEWS AP PELVIS: 05/09/20 HISTORY: Injury, right hip pain. FINDINGS/IMPRESSION: There is a fracture of the neck of the right femur with associated foreshortening. POS: OFF
[2020-05-09] MEDS ORDERED: Ketorolac Tromethamine 30 MG/ML VIAL ONE (23:11)
[2020-05-09 23:29] LABS: #Eosinphils 0.1 thou/uL (0.0-0.7); #Lymphocytes 1.3 thou/uL (1.20-3.40); #Monocytes 0.8 thou/uL (0.11-0.59); #Neutrophils 6.2 thou/uL (1.40-6.50); %Basophils 0.1 % (0.0-1.0); %Eosinophils 1.3 % (0.0-10.0); %Lymphocytes 14.9 % (21.0-51.0); %Monocytes 9.7 % (0.0-10.0); %Neutrophils 74.1 % (42.0-75.0); Hemoglobin 12.9 g/dL (14.0-18.0); Mean Corpuscular HGB CONC 32.9 g/dL (32.0-36.0); Mean Corpuscular Hemoglobin 31.1 pg (27.0-31.0); Mean Corpuscular Volume 94.5 fL (78.0-98.0); Mean Platelet Volume 7.5 fL (7.4-10.4); Platelet Count 278 thou/uL (130-400); RBC Distribution Width 12.2 % (11.5-14.5); Red Blood Cell (RBC) Count 4.15 mill/uL (4.70-6.10); White Blood Cell (WBC) Count 8.4 thou/uL (4.8-10.8)
[2020-05-09 23:49] LABS: ALT (SGPT) 16 U/L (8-55); AST (SGOT) 27 U/L (5-34); Albumin 3.4 g/dL (3.4-4.8); Alkaline Phosphatase 98 U/L (40-110); Anion Gap 17 mmol/L (10-20); BUN (Urea Nitrogen) 22 mg/dL (8.4-25.7); Bilirubin, Total 0.4 mg/dL (0.2-1.2); Calc. Creatinine Clearance 0 mL/min (70-130); Calcium 9.1 mg/dL (7.8-10.44); Carbon Dioxide 24 mmol/L (23-31); Chloride 103 mmol/L (98-107); Globulin 3.8 g/dL (2.4-3.5); Glucose 109 mg/dL (80-115); Potassium 3.7 mmol/L (3.5-5.1); Protein, Total 7.2 g/dL (5.8-8.1); Sodium 140 mmol/L (136-145)
--- NOTE | 2020-05-09 23:51 | CT ---
CT PULMONARY ANGIOGRAM WITH IV CONTRAST AND 3-D POSTPROCESSING: HISTORY:Dyspnea FINDINGS: There is good contrast opacification of the pulmonary arterial vasculature without filling defects to suggest pulmonary embolism. Vascular calcifications are present. The thoracic aorta is well opacified without aneurysm or dissect ion. No pleural or pericardial effusions are seen. There is mild dependent changes at the right lung base. Extensive emphysematous changes are present. No pneumothoraces, focal areas of consolidation or lung nodules are noted. There are degenerative changes in the spine. IMPRESSION: No CT evidence of pulmonary embolism.
[2020-05-10] MEDS ORDERED: Morphine 4 MG/ML VIAL ONE (00:13)
[2020-05-10] MEDS ORDERED: HYDROcodone/Acetaminophen 5/325 mg Tablet ONE (00:13)
[2020-05-10] MEDS ORDERED: Ondansetron PF 4 MG/2 ML Vial ONE (00:13)
[2020-05-10] MEDS ORDERED: Metoprolol Tartrate 50 MG TAB ONE (00:38)
[2020-05-10] MEDS ORDERED: Amlodipine 5 MG TAB ONE (00:38)
--- NOTE | 2020-05-10 02:02 | PDOC.FPRHP ---
- History of Present Illness Chief Complaint: Hip Pain History of Present Illness: Patient is a 69 yo male who presented to the ED for intractable hip pain. On Saturday 05/06 he leaned over in his power chair at his desk and felt a pop of his right hip that felt like muscles ripping away. After that he reports sudden onset of severe pain. The pain is located only in his R groin and is non radiating. It is exacerbated by movement. With movement, he will get muscle cramping that spreads to his back and L leg. He denies any other sx. His R leg has very limited mobility due to a neurologic condition that he was unable to name. It has been that way for several years and will only twitch randomly, he reports no significant muscular control of the leg. Due to the same condition, his RUE functions at "25% of full strength". He also has an ostomy 2/2 obstruction from decreased bowel motility. Of note, patient recently left [facility] [place] [facility] yesterday morning after being treated for pneumonia. At that hospital stay, hip was not imaged. ED Course: Patient received 50 mcg fentanyl X2, 15 mg Toradol, 4 mg Morphine, [place] 5, Zofran 8 mg, Metoprolol 50 mg, Amlodipine 5 mg. - Allergies/Adverse Reactions Allergies Allergy/AdvReac Type Severity Reaction Status Date / Time No Known Allergies Allergy Verified 07/14/19 05:54 - Home Medications Medication Instructions Recorded Confirmed Type Metoprolol Tartrate [Lopressor] 25 mg PO BID 06/18/13 05/10/20 History Amlodipine Besylate [amLODIPine 10 mg PO HS 12/19/19 05/10/20 History Besylate] Cyclobenzaprine [Flexeril] 5 mg PO TID PRN 02/21/20 05/10/20 History Gabapentin 100 mg PO TID 02/21/20 05/10/20 History Polyethylene Glycol 3350 [Miralax] 17 gm PO TID #90 pk 03/03/20 05/10/20 Rx - History PMHx: Myoneural disorder, HTN PSHx: Ostomy a couple months ago for ileus FHx: Maternal grandmother- heart disease. Social: Currently smokes 1/3ppd cigarettes, denies alcohol and drug use. Lives at home alone, uses powerchair and does his own transfers. - Review of Systems General: denies: fever/chills, fatigue Eyes: denies: eye pain, vision changes ENT: denies: nasal congestion, rhinorrhea Respiratory: denies: cough, congestion, shortness of breath Cardiovascular: denies: chest pain, edema Gastrointestinal: denies: diarrhea, constipation Genitourinary: denies: incontinence, dysuria, polyuria Skin: denies: rashes, lesions Musculoskeletal: reports: pain, tenderness - Vital signs BP: 158/100, Pulse: 140, Resp: 18, Temp: 99.4 (Oral), Pain: 10, O2 sat: 94 on (Room Air), Time: 05/09/2020 19:19. Pulse: 133, O2 sat: 93 on (Room Air), Time: 05/09/2020 20:20. BP: 144/100, Pulse: 133, Resp: 20, Pain: 10, O2 sat: 94 on (Room Air), Time: 05/09/2020 22:02. BP: 140/84, Pulse: 130, Resp: 20, Pain: 9, O2 sat: 96 on (Room Air), Time: 04/25 23:01. BP: 105/71, Pulse: 132, Resp: 18, Pain: 8, O2 sat: 94 on (Room Air), Time: 05/10/2020 00:44. Wt 54 kg - Physical Exam Constitutional: NAD, awake, alert and oriented -Constitutional: Cachectic appearing HEENT: normocephalic and atraumatic, grossly normal vision, grossly normal hearing Neck: supple, FROM Chest: no-tender to palpation Heart: RRR, normal S1/S2, no murmurs/rubs/gallops Lungs: CTAB, no respiratory distress, good air movement Abdomen: soft, non-tender, bowel sounds present -Musculoskeletal: Limited motion of R hip 2/2 pain, R leg with minimal movement, able to move toes on both feet Neurological: CN II-XII intact -Neurological: RLE 3/5 strength-limited by pain Sensation intact throughout Skin: no rash/lesions Heme/Lymphatic: no unusual bruising or bleeding Psychiatric: normal mood and affect, good judgment and insight, intact recent and remote memory FMR H&P: Results - Labs Result Diagrams: 05/09/20 23:05 05/11/20 05:15 Lab results: WBC 8.4 thou/uL (4.8-10.8) 05/09/20 23:05 Hgb 12.9 g/dL (14.0-18.0) L 05/09/20 23:05 Hct 39.2 % (42.0-52.0) L 05/09/20 23:05 MCV 94.5 fL (78.0-98.0) 05/09/20 23:05 Plt Count 278 thou/uL (130-400) 05/09/20 23:05 Neutrophils % 74.1 % (42.0-75.0) 05/09/20 23:05 Sodium 140 mmol/L (136-145) 05/09/20 23:05 Potassium 3.7 mmol/L (3.5-5.1) 05/09/20 23:05 Chloride 103 mmol/L (98-107) 05/09/20 23:05 Carbon Dioxide 24 mmol/L (23-31) 05/09/20 23:05 BUN 22 mg/dL (8.4-25.7) 05/09/20 23:05 Creatinine 0.93 mg/dL (0.7-1.3) 05/09/20 23:05 Glucose 109 mg/dL (80-115) 05/09/20 23:05 Calcium 9.1 mg/dL (7.8-10.44) 05/09/20 23:05 Total Bilirubin 0.4 mg/dL (0.2-1.2) 05/09/20 23:05 AST 27 U/L (5-34) 05/09/20 23:05 ALT 16 U/L (8-55) 05/09/20 23:05 Alkaline Phosphatase 98 U/L (40-110) 05/09/20 23:05 Serum Total Protein 7.2 g/dL (5.8-8.1) 05/09/20 23:05 Albumin 3.4 g/dL (3.4-4.8) 05/09/20 23:05 - Radiology Interpretation Other Status: report reviewed by me Additional comment: R hip femoral neck fracture FMR H&P: A/P - Plan R hip fracture - Pain control with JUAN tylenol, ibuprofen, gabapentin and PRN flexeril, [place], Morphine-only if all other options have been tried - Non operative candidate per orthopedics CAP - Treated at [facility] before leaving AMA - Continue Azithro and Augmentin for 2 days-had 3 days tx in hospital Protein Calorie malnutrition - HH diet, Ensure supplementation HTN - Home medications Myoneuronal disorder - Aware DVT ppx: Lovenox GI ppx: Protonix Diet: HH Code: Full PCP: [facility] Dispo: Admit medical obs, eLOS <48 hrs pending pain control FMR H&P: Upper Level - Pertinent history Mr Damon is a 69yo male with neurodegenerative disease who presented with right hip pain of 3 days duration (started 05/06). He bent over in his power wheelchair and felt a pop, felt the muscle was ripping. He presented to ED several days ago for leg spasms but was admitted for pneumonia for 3 days. COVID was neg. He left earlier today AMA despite being hypoxic. Leg spasms were so severe he required dilaudid and [place] but no imaging of the leg was preformed at that time. Xray in our ED showed femur fracture, ortho recommended nonsurgical management. Admitted for pain management. PE: General: NAD resting, severely malnourished. Pleasant CV: RRR, no murmur. Pulm: CTA b/l Abdomen: Nontender Extremities: Muscle atrophy. Pain with right hip flexion. Tenderness anteriorly. A/P: Intractable Pain 2/2 right femur neck fracture -VSS. Xray performed in ED. Ortho consulted from ED, surgery not indicated. Unable to control pain despite Fentanyl 50mcg x2, Morphine 4mg, Toradol 15mg, and [place] 5/325. Will admit to medical floor to establish pain regimen to control pain. Will start scheduled NSAIDS, Tylenol. Continue home Gabapentin TID and Flexeril PRN. [place] 5/325 q6hr PRN with Morphine for breakthrough. CAP -No O2 requirement. Will check procal. Continue Augmentin and Azithro. Protein malnutrition -Had Dietary consult on 05/08, recommended regular diet, Ensure enlive TID. Was evaluated by speech therapy that felt regular diet was appropriate. They did note he complained of severe leg pain multiple times and was very hostile and aggressive during session. Unspecified neurodegenerative disorder, Primary lateral sclerosis? - Apparently had some workup done in [place] but decided not to continue - Neurogenic bowel and bladder s/p ostomy - Plan Date/Time: 05/10/20 0200 I, Liliana Rosado, have evaluated this patient and agree with findings/plan as outlined by medical intern resident. Pertinent changes/additions are listed here. Addendum - Attending - Attending Attestation Date/Time: 05/12/20 0901 I personally evaluated the patient and discussed the management with Dr. Rosado. I agree with the History, Examination, Assessment and Plan documented above with any addition or exceptions noted below.
[2020-05-10] MEDS ORDERED: Polyethylene Glycol 3350 17 GM Packet PO PRN (03:52)
[2020-05-10] MEDS ORDERED: Calcium Carbonate 500 MG ChewTAB PO PRN (03:52)
[2020-05-10 04:23] VITALS: BMI 16.9
[2020-05-10] MEDS: HYDROcodone/Acetaminophen 10/325 mg Tablet PO PRN (04:44)
[2020-05-10] MEDS: Ibuprofen 800 MG TAB PO SCH ×3 (04:45→23:30)
[2020-05-10] MEDS: Amoxicillin/Potassium Clav 875 MG TAB PO SCH ×2 (06:47→16:15)
[2020-05-10] MEDS: Morphine 2 MG/ML VIAL SLOW IVP PRN (07:47)
[2020-05-10] MEDS: Azithromycin 250 MG TAB PO SCH (07:48)
[2020-05-10] MEDS: Gabapentin 100 MG CAP PO SCH ×3 (07:48→19:58)
[2020-05-10] MEDS: Metoprolol Tartrate 25 MG TAB PO SCH ×2 (07:48→19:58)
[2020-05-10] MEDS ORDERED: Cyclobenzaprine 10 MG TAB PO PRN (08:37)
[2020-05-10] MEDS ORDERED: Enoxaparin Sodium 30 MG/0.3 ML SYRINGE SC SCH (09:00)
[2020-05-10] MEDS: Enoxaparin Sodium 40 MG/0.4 ML SYRINGE SC SCH (09:26)
[2020-05-10] MEDS: Acetaminophen 500 MG TAB PO SCH ×4 (11:55→23:29)
[2020-05-10] MEDS: Cyclobenzaprine 10 MG TAB PO PRN ×2 (14:15→20:02)
[2020-05-10] MEDS: Loratadine 10 MG TAB PO PRN (17:55)
[2020-05-10] MEDS: Amlodipine 10 MG TAB PO SCH (19:57)
[2020-05-11 06:02] LABS: Anion Gap 14 mmol/L (10-20); BUN (Urea Nitrogen) 26 mg/dL (8.4-25.7); Calc. Creatinine Clearance 59 mL/min (70-130); Calcium 9.1 mg/dL (7.8-10.44); Carbon Dioxide 28 mmol/L (23-31); Chloride 104 mmol/L (98-107); Glucose 82 mg/dL (80-115); Sodium 142 mmol/L (136-145)
[2020-05-11] MEDS: HYDROcodone/Acetaminophen 10/325 mg Tablet PO PRN ×4 (06:11→23:56)
[2020-05-11] MEDS: Acetaminophen 500 MG TAB PO SCH ×4 (06:12→22:15)
[2020-05-11] MEDS: Amoxicillin/Potassium Clav 875 MG TAB PO SCH ×2 (06:12→17:01)
[2020-05-11] MEDS: Ibuprofen 800 MG TAB PO SCH ×2 (06:12→14:17)
--- NOTE | 2020-05-11 06:47 | PDOC.FM ---
- Subjective Subjective: No acute overnight events, cramping leg pains on fractured side. Describes fracture as non-traumatic event, leaned forward, felt pop and had immediate pain. Lives independently, goal is to be able to transfer himself to wheelchair again. - Objective Vital Signs & Weight: Vital Signs (12 hours) Temp Pulse Resp BP BP BP Pulse Ox 05/11/20 03:44 98.2 F 85 16 107/55 L 93 L 05/10/20 23:29 97.8 F 82 16 112/61 95 05/10/20 19:57 79 120/65 05/10/20 19:56 98.6 F 79 18 120/65 95 Weight Weight 63.049 kg I&O: 05/09/20 05/10/20 05/11/20 06:59 06:59 06:59 Intake Total 720 Output Total 600 Balance 120 Result Diagrams: 05/09/20 23:05 05/11/20 05:15 Phys Exam - Physical Examination Constitutional: NAD cachectic temporal wasting Neck: supple Respiratory: no wheezing, no rales, clear to auscultation bilateral Cardiovascular: no significant murmur regular rhythm with intermittent PVCs Gastrointestinal: soft, non-tender ostomy in place Musculoskeletal: no edema, pulses present Neurological: moves all 4 limbs Psychiatric: normal affect, A&O x 3 Skin: normal turgor Dx/Plan - Plan Plan: R hip fracture - Pain control with JUAN tylenol, ibuprofen, gabapentin and PRN flexeril, [place], Morphine-only if all other options have been tried - Non operative candidate per orthopedics - CM consulted for placement - PT/OT consulted, appreciate placement recs, goal is to be able to perform transfers independently before return home CAP - Treated at [facility] before leaving AMA - Continue Azithro and Augmentin for 2 days-had 3 days tx in hospital, to be completed 05/12 Protein Calorie malnutrition - HH diet, Ensure supplementation HTN - Home medications Myoneuronal disorder Chronic, uses power WC at home. Unclear if complete work up has been completed outpatient, pt does not desire further w/u. DVT ppx: Lovenox GI ppx: Protonix Diet: HH Code: Full PCP: [facility] Dispo: Admit medical obs, eLOS <48 hrs pending pain control Addendum - Attending - Attending Attestation Date/Time: 05/11/20 4448 I personally evaluated the patient and discussed the management with Dr. Donaldson. I agree with the History, Examination, Assessment and Plan documented above with any addition or exceptions noted below. Getting pt/ot to eval pt as his goal is to be able to transfer himself. Pain meds on board. Consulting ortho for recommendations.
[2020-05-11] MEDS: Gabapentin 100 MG CAP PO SCH ×3 (09:05→21:14)
[2020-05-11] MEDS: Azithromycin 250 MG TAB PO SCH (09:06)
[2020-05-11] MEDS: Cyclobenzaprine 10 MG TAB PO PRN (09:07)
[2020-05-11] MEDS: Metoprolol Tartrate 25 MG TAB PO SCH ×2 (09:25→21:14)
[2020-05-11] MEDS: Enoxaparin Sodium 40 MG/0.4 ML SYRINGE SC SCH (09:26)
[2020-05-11] MEDS: Morphine 2 MG/ML VIAL SLOW IVP PRN (14:45)
[2020-05-11] MEDS: tiZANidine HCl 4 MG TAB PO PRN (17:00)
[2020-05-11] MEDS: Amlodipine 10 MG TAB PO SCH (21:14)
[2020-05-12] MEDS: Amoxicillin/Potassium Clav 875 MG TAB PO SCH (06:03)
[2020-05-12] MEDS: HYDROcodone/Acetaminophen 10/325 mg Tablet PO PRN ×2 (06:03→14:59)
[2020-05-12] MEDS: Acetaminophen 500 MG TAB PO SCH ×4 (06:04→22:28)
--- NOTE | 2020-05-12 06:27 | PDOC.FM ---
- Subjective Subjective: Reports continued L hip pain. Pain controlled at rest with [place] 10s but worsens with movement. Has not requires any PRN pain medications. Denies headache, chest pain, SOB, palpitations, nausea and abdominal pain. - Objective MAR Reviewed: Yes Vital Signs & Weight: Vital Signs (12 hours) Temp Pulse Resp BP Pulse Ox 05/12/20 04:21 98.5 F 82 18 124/67 90 L 05/11/20 23:54 98.2 F 82 18 133/71 94 L 05/11/20 21:33 98.1 F 93 18 114/68 92 L 05/11/20 21:14 86 Weight Weight 63.049 kg I&O: 05/10/20 05/11/20 05/12/20 06:59 06:59 06:59 Intake Total 720 Output Total 600 Balance 120 Result Diagrams: 05/09/20 23:05 05/11/20 05:15 Phys Exam - Physical Examination Constitutional: NAD Cachectic HEENT: moist MMs, sclera anicteric Neck: full ROM Respiratory: no wheezing, clear to auscultation bilateral Cardiovascular: RRR, no significant murmur Gastrointestinal: soft, non-tender, positive bowel sounds Musculoskeletal: no edema R hip tender to palpation Neurological: moves all 4 limbs Psychiatric: normal affect, A&O x 3 Skin: no rash Dx/Plan - Plan Plan: R hip fracture - Pain control with JUAN tylenol and gabapentin; PRN flexeril, [place], Morphine- only if all other options have been tried - F/u orthopedics recs - CM consulted for placement - PT/OT consulted, recommended SNF vs. Rehab CAP - Treated at [facility] before leaving [place] - Continue Azithro and Augmentin for 2 days-had 3 days tx in hospital, to be completed 05/12 Protein Calorie malnutrition - HH diet, Ensure supplementation HTN - Home medications Myoneuronal disorder Chronic, uses power WC at home. Unclear if complete work up has been completed outpatient, pt does not desire further w/u. DVT ppx: Lovenox GI ppx: Protonix Diet: HH Code: Full PCP: [facility] Dispo: SNF vs. Rehab pending further medical management and placement approval Addendum - Attending - Attending Attestation Date/Time: 05/12/20 0271 I personally evaluated the patient and discussed the management with Dr. Ramírez. I agree with the History, Examination, Assessment and Plan documented above with any addition or exceptions noted below. The patient continues to have pain. Ortho will evaluate today and case mgmt has been consulted for dispo planning.
[2020-05-12] MEDS: Enoxaparin Sodium 40 MG/0.4 ML SYRINGE SC SCH ×2 (08:30→08:33)
[2020-05-12] MEDS: Azithromycin 250 MG TAB PO SCH (08:30)
[2020-05-12] MEDS: Gabapentin 100 MG CAP PO SCH ×3 (08:30→19:38)
[2020-05-12] MEDS: Metoprolol Tartrate 25 MG TAB PO SCH ×2 (08:30→19:38)
[2020-05-12] MEDS: Ketorolac Tromethamine 30 MG/ML VIAL IVP PRN ×2 (10:52→18:31)
[2020-05-12] MEDS: Morphine 2 MG/ML VIAL SLOW IVP PRN ×2 (10:52→19:38)
[2020-05-12] MEDS: tiZANidine HCl 4 MG TAB PO PRN ×2 (10:53→18:30)
--- NOTE | 2020-05-12 11:42 | CON ---
DATE OF CONSULTATION: 05/12/2020 CHIEF COMPLAINT: Right hip pain. HISTORY OF PRESENT ILLNESS: Ang is a 69-year-old white male, admitted by the Family Practice Resident Team for right hip pain which started a couple of days ago when he was sitting forward in his electric wheelchair and felt a pop. The pain onset was immediate and he presented to the emergency room at [facility], where he was evaluated, I believe by orthopedist lead electrical controls engineer, who told the patient this is a nonsurgical problem and that nonoperative management would be in his best interest. Shortly after that, the patient left AMA, but then again bounced back for pain control. He again, I believe left AMA and has now been admitted to this facility for discomfort and pain control. This has been accomplished with medication and he is now more comfortable. He does not ambulate. He has a neuromuscular disease, which has a spastic contracture of the right lower extremity. Pain is improving slowly but surely, and again, he only transfers from chair to chair and bed to chair. PHYSICAL EXAMINATION: Visual inspection of right lower extremity demonstrates him to keep the hip in a high flexed position and then the right knee in a high flexed position. He has a spastic paralysis of the flexor tendons and the hamstrings. Range of motion is not assessed due to known underlying fracture, but pain is provocative and concordant on the right hip with any motion. IMAGING STUDIES: Two-view right hip and AP pelvis demonstrated a subcapital displaced femoral neck fracture with some osteopenia present. IMPRESSION: 1. Varus angulated displaced right femoral neck fracture. 2. Spastic paralysis of both lower extremities. PLAN: Due to the spasticity and the nature of his neuromuscular disease, a hemiarthroplasty would not be in his best interest due to the fact that his thigh and leg naturally assumed the dislocation position, which would lead to spontaneous dislocations postoperatively. Our recommendation at this point is nonoperative management as discussed by the prior evaluating surgeon, and eventually, he will scar this fracture and become less symptomatic. As I told him, a hemiarthroplasty may create more problems than it would solve in his particular situation. The patient was very pleasant throughout the interview, very thankful, and we will continue to treat nonoperatively. No surgical recommendation at this point. Reconsult as needed. Job ID: [id number]
[2020-05-12] MEDS: Amlodipine 10 MG TAB PO SCH (19:38)
[2020-05-13] MEDS: tiZANidine HCl 4 MG TAB PO PRN ×2 (00:25→07:43)
[2020-05-13] MEDS: HYDROcodone/Acetaminophen 10/325 mg Tablet PO PRN ×3 (00:26→16:24)
[2020-05-13] MEDS: Loratadine 10 MG TAB PO PRN (00:37)
[2020-05-13] MEDS: Acetaminophen 500 MG TAB PO SCH ×4 (05:15→23:51)
--- NOTE | 2020-05-13 06:58 | PDOC.FM ---
- Subjective Subjective: Says R hip pain improved after working with PT yesterday. Pain controlled at rest with [place], Flexeril and Morphine PRN. Does worsen with movement with management. Denies headache, chest pain, SOB, palpitations, nausea and abdominal pain. - Objective MAR Reviewed: Yes Vital Signs & Weight: Vital Signs (12 hours) Temp Pulse Resp BP Pulse Ox 05/13/20 03:35 98.1 F 85 16 130/75 92 L 05/12/20 23:40 99.0 F 78 16 106/64 92 L 05/12/20 20:14 98.6 F 90 16 113/69 92 L 05/12/20 19:38 82 Weight Admit Weight 63.049 kg Weight 63.049 kg I&O: 05/11/20 05/12/20 05/13/20 06:59 06:59 06:59 Intake Total 720 810 Output Total 600 1451 Balance 120 -641 Result Diagrams: 05/09/20 23:05 05/13/20 07:48 Phys Exam - Physical Examination Constitutional: NAD HEENT: moist MMs, sclera anicteric Neck: full ROM Respiratory: no wheezing, clear to auscultation bilateral Cardiovascular: RRR, no significant murmur Gastrointestinal: soft, non-tender, positive bowel sounds Musculoskeletal: no edema R hip contracted towards trunk, nontender Neurological: moves all 4 limbs Psychiatric: normal affect, A&O x 3 Skin: no rash Dx/Plan - Plan Plan: R femur neck fracture - Pain control: JUAN tylenol and gabapentin; PRN flexeril, [place], Morphine - Deemed nonoperable by ortho - PT/OT consulted, recommended SNF vs. Rehab. F/u CM CAP - Treated at [facility] before leaving A[facility] - Completed Azithro and Augmentin course on 05/12 Protein Calorie malnutrition - HH diet, Ensure supplementation HTN - Home medications Myoneuronal disorder Chronic, uses power WC at home. Unclear if complete work up has been completed outpatient, pt does not desire further w/u. DVT ppx: Lovenox GI ppx: Protonix Diet: HH Code: Full PCP: [facility] Dispo: SNF vs. Rehab pending placement approval Addendum - Attending - Attending Attestation Date/Time: 05/13/20 3971 I personally evaluated the patient and discussed the management with Dr. Ramírez. I agree with the History, Examination, Assessment and Plan documented above with any addition or exceptions noted below.
[2020-05-13] MEDS: Morphine 2 MG/ML VIAL SLOW IVP PRN (07:44)
[2020-05-13] MEDS: Gabapentin 100 MG CAP PO SCH ×3 (07:44→20:43)
[2020-05-13] MEDS: Metoprolol Tartrate 25 MG TAB PO SCH ×2 (07:44→20:43)
[2020-05-13] MEDS: Polyethylene Glycol 3350 17 GM Packet PO SCH (07:48)
[2020-05-13 08:27] LABS: ALT (SGPT) 30 U/L (8-55); AST (SGOT) 51 U/L (5-34); Alkaline Phosphatase 207 U/L (40-110); Anion Gap 12 mmol/L (10-20); BUN (Urea Nitrogen) 23 mg/dL (8.4-25.7); Bilirubin, Total 0.3 mg/dL (0.2-1.2); Calc. Creatinine Clearance 52 mL/min (70-130); Calcium 8.9 mg/dL (7.8-10.44); Carbon Dioxide 27 mmol/L (23-31); Chloride 102 mmol/L (98-107); Globulin 3.3 g/dL (2.4-3.5); Glucose 91 mg/dL (80-115); Potassium 4.2 mmol/L (3.5-5.1); Protein, Total 6.3 g/dL (5.8-8.1); Sodium 137 mmol/L (136-145)
[2020-05-13] MEDS: Enoxaparin Sodium 40 MG/0.4 ML SYRINGE SC SCH (10:08)
[2020-05-13] MEDS ORDERED: tiZANidine HCl 4 MG TAB PO PRN (10:12)
[2020-05-13] MEDS: Methocarbamol 500 MG TAB PO PRN ×2 (11:41→20:43)
--- NOTE | 2020-05-13 13:03 | PDOC.FMACP ---
Advance Care Planning - Problem (1) Myoneural disorder, unspecified Status: Acute Code(s): G70.9 - MYONEURAL DISORDER, UNSPECIFIED (2) Community acquired pneumonia Status: Acute Code(s): J18.9 - PNEUMONIA, UNSPECIFIED ORGANISM (3) Femur fracture, right Status: Acute Code(s): S72.91XA - UNSP FRACTURE OF RIGHT FEMUR, INIT FOR CLOS FX (4) Palliative care encounter Status: Acute Code(s): Z51.5 - ENCOUNTER FOR PALLIATIVE CARE (5) Severe protein-calorie malnutrition Status: Chronic Code(s): E43 - UNSPECIFIED SEVERE PROTEIN-CALORIE MALNUTRITION - Note Participants: patient, palliative care Summary: Palliative care revisited Advanced Care Planning. The diagnosis, prognosis and goals of care were discussed. Appropriate forms and documentation to accomplish the goals of care were discussed. All questions were answered. *Patient elected to complete MPOA and Directive to physician. Confirmed full resuscitation status at this time. Original documents given to the patient, copies placed on the chart for medical records. Please refer to Palliative care notes in note section. As Consult was for Advanced directives, and completed Palliative Care will sign off. Thank you for this very appropriate consult. Time Spent (mins): 15
[2020-05-13] MEDS: Morphine ER 15 MG TAB PO PRN (13:48)
[2020-05-13] MEDS: Amlodipine 10 MG TAB PO SCH (20:43)
[2020-05-14] MEDS: Morphine ER 15 MG TAB PO PRN (02:48)
[2020-05-14] MEDS: Acetaminophen 500 MG TAB PO SCH ×3 (05:31→17:28)
[2020-05-14] MEDS: HYDROcodone/Acetaminophen 10/325 mg Tablet PO PRN (05:58)
[2020-05-14 06:17] LABS: ALT (SGPT) 56 U/L (8-55); AST (SGOT) 84 U/L (5-34); Alkaline Phosphatase 294 U/L (40-110); Anion Gap 15 mmol/L (10-20); BUN (Urea Nitrogen) 23 mg/dL (8.4-25.7); Bilirubin, Total 0.2 mg/dL (0.2-1.2); Calc. Creatinine Clearance 63 mL/min (70-130); Calcium 8.8 mg/dL (7.8-10.44); Carbon Dioxide 26 mmol/L (23-31); Chloride 101 mmol/L (98-107); Globulin 3.4 g/dL (2.4-3.5); Glucose 131 mg/dL (80-115); Potassium 4.2 mmol/L (3.5-5.1); Protein, Total 6.4 g/dL (5.8-8.1); Sodium 138 mmol/L (136-145)
--- NOTE | 2020-05-14 06:25 | PDOC.FM ---
- Subjective Subjective: R hip improved after working with PT yesterday. Says pain worsened overnight but was well controlled with pain medication. Denies chest pain, palpitations, SOB, nausea and abdominal pain. Last BM yesterday. - Objective MAR Reviewed: Yes Vital Signs & Weight: Vital Signs (12 hours) Temp Pulse Resp BP BP Pulse Ox 05/14/20 03:59 98.1 F 89 16 152/72 H 92 L 05/13/20 23:40 98.6 F 82 16 135/68 92 L 05/13/20 20:43 80 120/64 05/13/20 20:26 98.7 F 80 16 120/64 92 L Weight Admit Weight 63.049 kg Weight 63.049 kg I&O: 05/12/20 05/13/20 05/14/20 06:59 06:59 06:59 Intake Total 810 820 Output Total 1451 950 Balance -641 -130 Result Diagrams: 05/09/20 23:05 05/14/20 05:16 Phys Exam - Physical Examination Constitutional: NAD Cachectic HEENT: moist MMs, sclera anicteric Neck: full ROM Respiratory: no wheezing, clear to auscultation bilateral Cardiovascular: RRR, no significant murmur Gastrointestinal: soft, non-tender, positive bowel sounds Musculoskeletal: no edema Neurological: moves all 4 limbs Psychiatric: normal affect, A&O x 3 Skin: no rash Dx/Plan - Plan Plan: R femur neck fracture - Pain control: JUAN tylenol and gabapentin; required [place] 10 x 3, MS Contin 15 x 2, Robaxin 500 x 2 PRN for pain over past 24 hours - Will changed Robaxin to 500mg QID scheduled, [place] 10 Q6H to BID, Tylenol 500mg QID to 250mg QID - Start Lidocaine 5% patch, K-patch - Deemed nonoperable by ortho - PT/OT consulted, recommended SNF vs. Rehab. F/u CM Transaminitis AST 27 -> 51 -> 84. ALT 16 -> 30 -> 56. Alk Phos 98 -> 207 -> 294 -Will decrease Tylenol 500mg QID to 250mg QID -Will decrease [place] 10 Q6H to BID -Monitor with am labs CAP - Treated at [facility] before leaving AMA - Completed Azithro and Augmentin course on 05/12 Protein Calorie malnutrition - HH diet, Ensure supplementation HTN - Home medications Myoneuronal disorder Chronic, uses power WC at home. Unclear if complete work up has been completed outpatient -Pt does not desire further w/u. DVT ppx: Lovenox GI ppx: Protonix Diet: HH Code: Full PCP: [facility] Dispo: SNF vs. Rehab pending placement approval Addendum - Attending - Attending Attestation Date/Time: 05/14/20 1200 I personally evaluated the patient and discussed the management with Dr. Ramírez. I agree with the History, Examination, Assessment and Plan documented above with any addition or exceptions noted below. Continue to wean pain meds. He wants to go home on hospice, which palliative a pproves.
[2020-05-14] MEDS: Metoprolol Tartrate 25 MG TAB PO SCH ×2 (08:54→22:54)
[2020-05-14] MEDS: Enoxaparin Sodium 40 MG/0.4 ML SYRINGE SC SCH (08:54)
[2020-05-14] MEDS: Polyethylene Glycol 3350 17 GM Packet PO SCH (08:54)
[2020-05-14] MEDS: Gabapentin 100 MG CAP PO SCH ×3 (08:54→23:41)
[2020-05-14] MEDS: Methocarbamol 500 MG TAB PO SCH ×4 (09:09→22:53)
[2020-05-14] MEDS: Lidocaine 5% Patch TD SCH (10:43)
[2020-05-14] MEDS: Amlodipine 10 MG TAB PO SCH (22:54)
[2020-05-15] MEDS: Acetaminophen 500 MG TAB PO SCH ×4 (00:11→09:02)
[2020-05-15] MEDS: Morphine ER 15 MG TAB PO PRN ×2 (00:25→20:03)
[2020-05-15] MEDS: Ibuprofen 600 MG TAB PO PRN ×2 (04:49→21:22)
[2020-05-15] MEDS: Lidocaine Patch Removal 1 EACH TOP SCH ×2 (05:31→20:06)
--- NOTE | 2020-05-15 06:59 | PDOC.FM ---
- Subjective Subjective: Says pain worsened overnight but did not want PRN pain medication. Reports vivid dreams last pm but denies hallucinations. Denies chest pain, palpitations, SOB, nausea and abdominal pain. - Objective MAR Reviewed: Yes Vital Signs & Weight: Vital Signs (12 hours) Temp Pulse Resp BP BP Pulse Ox 05/15/20 04:07 98.4 F 92 16 128/66 92 L 05/14/20 23:55 99.2 F 107 H 18 122/75 92 L 05/14/20 22:54 103 H 142/72 H 05/14/20 20:09 99.0 F 95 16 106/64 93 L Weight Admit Weight 63.049 kg Weight 63.049 kg I&O: 05/13/20 05/14/20 05/15/20 06:59 06:59 06:59 Intake Total 810 2029 2219 Output Total 1450 2049 1974 Balance -641 -20 245 Result Diagrams: 05/09/20 23:05 05/15/20 07:10 Phys Exam - Physical Examination Constitutional: NAD HEENT: moist MMs, sclera anicteric Neck: full ROM Respiratory: no wheezing, clear to auscultation bilateral Cardiovascular: RRR, no significant murmur Gastrointestinal: soft, non-tender, positive bowel sounds Musculoskeletal: no edema Mild R hip tenderness. R leg chronically contracted Neurological: moves all 4 limbs Psychiatric: normal affect, A&O x 3 Skin: no rash Dx/Plan - Plan Plan: R femur neck fracture - Pain control: JUAN tylenol, gabapentin, robaxin, ibuprofen. PRN MS Contin 15, [place] 10. Did not require [place] 10 in past 24 hours - Change MS Contin 15 to BID JUAN - Continue Lidocaine 5% patch, K-patch - Deemed nonoperable by ortho - PT/OT consulted, recommended SNF vs. Rehab - CM consulted to coordinate discharge planning. Patient desires hospice outpatient Transaminitis AST 27 -> 51 -> 84 -> 147. ALT 16 -> 30 -> 56 -> 103. Alk Phos 98 -> 207 -> 294 -> 511 -Discontinued Tylenol. Did not receive [place] 10 over past 24 hours -Monitor with am labs CAP - Treated at [facility] before leaving AMA - Completed Azithro and Augmentin course on 05/12 Protein Calorie malnutrition - HH diet, Ensure supplementation HTN - Home medications Myoneuronal disorder Chronic, uses power WC at home. Unclear if complete work up has been completed outpatient -Pt does not desire further w/u. DVT ppx: Lovenox GI ppx: Protonix Diet: HH Code: Full PCP: [facility] Dispo: Hospice outpatient pending evaluation and approval Addendum - Attending - Attending Attestation Date/Time: 05/15/20 4450 I personally evaluated the patient and discussed the management with Dr. Ramírez. I agree with the History, Examination, Assessment and Plan documented above with any addition or exceptions noted below. Worsening liver injury. ? 2/2 APAP but was not on markedly elevated dose and we decreased when I came on service. Will consider GI consultation.
[2020-05-15 07:50] LABS: ALT (SGPT) 103 U/L (8-55); AST (SGOT) 147 U/L (5-34); Albumin 3.1 g/dL (3.4-4.8); Alkaline Phosphatase 511 U/L (40-110); Anion Gap 14 mmol/L (10-20); BUN (Urea Nitrogen) 20 mg/dL (8.4-25.7); Bilirubin, Total 0.3 mg/dL (0.2-1.2); Calc. Creatinine Clearance 64 mL/min (70-130); Calcium 9.2 mg/dL (7.8-10.44); Carbon Dioxide 27 mmol/L (23-31); Chloride 102 mmol/L (98-107); Globulin 3.3 g/dL (2.4-3.5); Glucose 91 mg/dL (80-115); Potassium 4.7 mmol/L (3.5-5.1); Protein, Total 6.4 g/dL (5.8-8.1); Sodium 138 mmol/L (136-145)
[2020-05-15] MEDS: Enoxaparin Sodium 40 MG/0.4 ML SYRINGE SC SCH ×2 (09:00→09:14)
[2020-05-15] MEDS: Gabapentin 100 MG CAP PO SCH ×3 (09:01→20:06)
[2020-05-15] MEDS: Lidocaine 5% Patch TD SCH (09:01)
[2020-05-15] MEDS: Metoprolol Tartrate 25 MG TAB PO SCH ×2 (09:02→20:06)
[2020-05-15] MEDS: Polyethylene Glycol 3350 17 GM Packet PO SCH (09:02)
[2020-05-15] MEDS: Methocarbamol 500 MG TAB PO SCH ×3 (09:03→13:41)
[2020-05-15] MEDS: HYDROcodone/Acetaminophen 10/325 mg Tablet PO PRN (11:58)
--- NOTE | 2020-05-15 14:29 | PDOC.BPN ---
- Brief Progress Note Discussed elevated LFTs with gastoenterology unofficially (Dr. Woodruff) who believes it is likely medication induced. Discussed with patient whether he would like to pursue further workup or continue the hospice route. He declines any further liver workup and would like to go home with home hospice and if it becomes an issues will discuss at that time.
[2020-05-15] MEDS: Amlodipine 10 MG TAB PO SCH (20:04)
[2020-05-15] MEDS ORDERED: Morphine ER 15 MG TAB PO SCH (21:00)
[2020-05-15] MEDS: Loratadine 10 MG TAB PO PRN (21:21)
[2020-05-16] MEDS: HYDROcodone/Acetaminophen 10/325 mg Tablet PO PRN ×2 (04:56→16:24)
--- NOTE | 2020-05-16 06:46 | PDOC.FM ---
- Subjective Subjective: Reports pain overnight but does not desire frequent pain medication. Discussed transitioning to scheduled MS Contin but wants pain medication to remain PRN. Denies right hip pain currently. Hopes he can go home today. - Objective MAR Reviewed: Yes Vital Signs & Weight: Vital Signs (12 hours) Temp Pulse Resp BP BP Pulse Ox 05/16/20 06:15 98 89/53 L 05/16/20 03:23 98.3 F 65 16 99/57 L 92 L 05/15/20 23:50 98.4 F 77 16 122/64 93 L 05/15/20 20:04 98 147/79 H 05/15/20 19:38 98.3 F 99 16 139/74 92 L Weight Admit Weight 63.049 kg Weight 63.049 kg I&O: 05/14/20 05/15/20 05/16/20 06:59 06:59 06:59 Intake Total 2029 2219 1759 Output Total 2049 1974 141 Balance -20 245 350 Result Diagrams: 05/09/20 23:05 05/16/20 08:03 Phys Exam - Physical Examination Constitutional: NAD Cachectic HEENT: moist MMs, sclera anicteric Neck: full ROM Respiratory: no wheezing, clear to auscultation bilateral Cardiovascular: RRR, no significant murmur Gastrointestinal: soft, non-tender, positive bowel sounds Musculoskeletal: no edema R leg contracted to chest Neurological: moves all 4 limbs Psychiatric: normal affect, A&O x 3 Skin: no rash Dx/Plan - Plan Plan: R femur neck fracture - Pain control: JUAN gabapentin, ibuprofen. PRN MS Contin 15 BID - Continue Lidocaine 5% patch, K-patch - Deemed nonoperable by ortho - PT/OT consulted, recommended SNF vs. Rehab - CM consulted to coordinate discharge planning. 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 ALT 16 -> 30 -> 56 -> 103. 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 Unclear if complete work up has been completed outpatient -Pt does not desire further w/u. DVT ppx: Lovenox GI ppx: Protonix Diet: HH Code: Full PCP: [facility]ting Dispo: Hospice outpatient pending approval Addendum - Attending - Attending Attestation Date/Time: 05/16/20 [id number] I personally evaluated the patient and discussed the management with the team. I agree with the History, Examination, Assessment and Plan documented above with any addition or exceptions noted below. LFTs improving, pain controlled. Dispo pending approval.
[2020-05-16 09:03] LABS: ALT (SGPT) 84 U/L (8-55); AST (SGOT) 77 U/L (5-34); Albumin 3.2 g/dL (3.4-4.8); Alkaline Phosphatase 403 U/L (40-110); Anion Gap 14 mmol/L (10-20); BUN (Urea Nitrogen) 24 mg/dL (8.4-25.7); Bilirubin, Total 0.4 mg/dL (0.2-1.2); Calc. Creatinine Clearance 56 mL/min (70-130); Calcium 9.5 mg/dL (7.8-10.44); Carbon Dioxide 28 mmol/L (23-31); Chloride 100 mmol/L (98-107); Globulin 3.6 g/dL (2.4-3.5); Glucose 92 mg/dL (80-115); Potassium 4.6 mmol/L (3.5-5.1); Protein, Total 6.8 g/dL (5.8-8.1); Sodium 137 mmol/L (136-145)
[2020-05-16] MEDS: Enoxaparin Sodium 40 MG/0.4 ML SYRINGE SC SCH (09:51)
[2020-05-16] MEDS: Gabapentin 100 MG CAP PO SCH ×2 (09:52→12:10)
[2020-05-16] MEDS: Metoprolol Tartrate 25 MG TAB PO SCH (09:53)
[2020-05-16] MEDS: Lidocaine 5% Patch TD SCH (09:53)
[2020-05-16] MEDS: Polyethylene Glycol 3350 17 GM Packet PO SCH (09:54)
[2020-05-16] MEDS: Morphine ER 15 MG TAB PO PRN (09:54)
[2020-05-16 12:02] VITALS: TEMP 97.9
[2020-05-16] MEDS: Ibuprofen 600 MG TAB PO PRN (12:10)
[2020-05-16 16:15] VITALS: BP 111/61
--- NOTE | 2020-05-19 14:24 | DIS ---
DATE OF ADMISSION: 05/12/2020 DATE OF DISCHARGE: 05/16/2020 RESIDENT: Jeri Ramírez MD. ADMITTING ATTENDING: Marie Sandhu MD. DISCHARGE ATTENDING: Marvin Gary MD. CONSULTS: Orthopedic Surgery, Palliative Care, outpatient hospice. PROCEDURES: None. PRIMARY DIAGNOSES: 1. Right femoral neck fracture. 2. Transaminitis, improved secondary to drug-induced cholestasis. SECONDARY DIAGNOSES: Recent history of community-acquired pneumonia, protein calorie malnutrition, hypertension, myoneural disorder. DISCHARGE MEDICATIONS: 1. Amlodipine 10 mg p.o. at bedtime. 2. Gabapentin 100 mg p.o. t.i.d. 3. Metoprolol tartrate 25 mg p.o. b.i.d. 4. Claritin 10 mg p.o. daily p.r.n. 5. Lidocaine 5% patch TD daily. 6. MiraLAX 17 g p.o. t.i.d. 7. MS Contin 15 mg p.o. b.i.d. p.r.n. 8. Protonix 40 mg p.o. daily. Discontinued medications: [place], Robaxin, Tylenol HISTORY OF PRESENT ILLNESS: The patient is a 69-year-old male with a chronic neurogenic condition, unspecified type, who presented to the ED with intractable hip pain for one day since leaning over in his wheelchair and feeling a pop in his right hip. X-ray of the right hip revealed a right femur neck fracture. Orthopedic Surgery was consulted and stated that the patient was not a surgical candidate due to chronic contracture of the right leg and hip secondary to a myoneural disorder. The patient was started on scheduled gabapentin and p.r.n. MS Contin. He was also started on lidocaine patch 5%. PT and OT were consulted and recommended SNF versus rehab. During hospitalization, the patient stated that he desired hospice care outpatient, Palliative and Hospice were consulted. The patient was accepted to hospice outpatient on 05/16 and was discharged home. During hospitalization, the patient was noted to have transaminitis with elevated AST, ALT, and alk phos. These initially up trended. Tylenol and Robaxin were discontinued with improvement of the LFTs. DISPOSITION: Stable. DISCHARGE INSTRUCTIONS: 1. Location: Home on home hospice. 2. Diet: Regular. 3. Activity: As tolerated. 4. Followup: Follow up with PCP, Dr. Painting at [facility] within 1 to 2 weeks. Further pain control for the patient will be taken over by hospice. Job ID: [id number] [facility] [address] [facility]
== END 2020-05-16 17:48 | disposition hospice, home (50) | DRG 542 ==
LOC: ERS 19:17 → SURG A 05-10 02:28 → OBSVTOIN 05-12 10:03
PROVIDERS: ADMIT Family Medicine; ATTEND Family Medicine
DX: M84.459A Pathological fracture, hip, unspecified, initial encounter for fracture (principal); J18.9 Pneumonia, unspecified organism; E43 Unspecified severe protein-calorie malnutrition; K83.1 Obstruction of bile duct; Z68.1 Body mass index [BMI] 19.9 or less, adult; Z51.5 Encounter for palliative care; I10 Essential (primary) hypertension; G70.9 Myoneural disorder, unspecified; F17.210 Nicotine dependence, cigarettes, uncomplicated; G83.89 Other specified paralytic syndromes; M85.861 Other specified disorders of bone density and structure, right lower leg; R74.01 Elevation of levels of liver transaminase levels; T39.1X5A Adverse effect of 4-Aminophenol derivatives, initial encounter; T42.8X5A Adverse effect of antiparkinsonism drugs and other central muscle-tone depressants, initial encounter; Z82.49 Family history of ischemic heart disease and other diseases of the circulatory system; Z93.3 Colostomy status; Z79.899 Other long term (current) drug therapy
CPT/HCPCS: 36415; 71275; 72170; 80048; 80053; 84145; 85025; 93005; 96374; 96375; 96376; G0378; J1650; J1885; J2270; J2405; J3010; Q9967

== ENCOUNTER 2020-06-30 13:50 | Inpatient (IN) | payer MEDICARE ==
[2020-06-30 14:54] LABS: #Basophils 0.1 thou/uL (0.0-0.2); #Eosinphils 0.7 thou/uL (0.0-0.7); #Lymphocytes 2.1 thou/uL (1.20-3.40); #Monocytes 0.9 thou/uL (0.11-0.59); #Neutrophils 8.9 thou/uL (1.40-6.50); %Basophils 0.7 % (0.0-1.0); %Eosinophils 5.4 % (0.0-10.0); %Lymphocytes 16.6 % (21.0-51.0); %Monocytes 7.1 % (0.0-10.0); %Neutrophils 70.2 % (42.0-75.0); Hemoglobin 14.8 g/dL (14.0-18.0); Mean Corpuscular HGB CONC 32.5 g/dL (32.0-36.0); Mean Corpuscular Hemoglobin 30.4 pg (27.0-31.0); Mean Corpuscular Volume 93.4 fL (78.0-98.0); Mean Platelet Volume 7.1 fL (7.4-10.4); Platelet Count 344 thou/uL (130-400); RBC Distribution Width 12.8 % (11.5-14.5); Red Blood Cell (RBC) Count 4.88 mill/uL (4.70-6.10); White Blood Cell (WBC) Count 12.7 thou/uL (4.8-10.8)
[2020-06-30 15:26] LABS: ALT (SGPT) 14 U/L (8-55); AST (SGOT) 24 U/L (5-34); Albumin 3.8 g/dL (3.4-4.8); Alkaline Phosphatase 123 U/L (40-110); Anion Gap 15 mmol/L (10-20); BUN (Urea Nitrogen) 25 mg/dL (8.4-25.7); Bilirubin, Total 0.4 mg/dL (0.2-1.2); CK (CPK) 39 U/L (30-200); Calc. Creatinine Clearance 0 mL/min (70-130); Calcium 10.2 mg/dL (7.8-10.44); Carbon Dioxide 27 mmol/L (23-31); Chloride 103 mmol/L (98-107); Globulin 4.1 g/dL (2.4-3.5); Glucose 112 mg/dL (80-115); Potassium 4.1 mmol/L (3.5-5.1); Protein, Total 7.9 g/dL (5.8-8.1); Sodium 141 mmol/L (136-145)
[2020-06-30 16:34] LABS: Bilirubin Negative (Negative); Blood, Urine Negative (Negative); Clarity Turbid (Clear); Glucose, Urine (Dipstick) Normal (Negative); Ketone, Urine Negative (Negative); Leukocyte 250 Leu/uL (Negative); Nitrite Negative (Negative); Protein, Urine (Dipstick) 10 mg/dL (Neg-Trace); RBC/HPF 0-3 HPF (0-3); Specific Gravity, Urine 1.025 (1.002-1.036); Squamous Epithelial 0-3 HPF (0-3); Urobilinogen Normal mg/dL (Less than 2); pH, Urine 7.5 (5.0-9.0)
[2020-06-30 16:35] LABS: Bacteria/HPF Rare-Few HPF (None Seen)
[2020-06-30] MEDS ORDERED: cefTRIAXone\\ROCEPHIN 1 GM VIAL ONE (16:49)
[2020-06-30] MEDS ORDERED: Polyethylene Glycol 3350 17 GM Packet PO PRN (17:17)
[2020-06-30] MEDS ORDERED: Loratadine 10 MG TAB PO PRN (17:17)
[2020-06-30] MEDS ORDERED: Azithromycin 500 MG VIAL ONE (18:17)
[2020-06-30] MEDS ORDERED: Fentanyl 100 MCG/2 ML VIAL ONE (18:17)
[2020-06-30 18:19] LABS: SARS-CoV-2 NAA Rapid Test Not Detected (NotDetected)
[2020-06-30 20:06] VITALS: BMI 15.1
[2020-06-30] MEDS: Amlodipine 10 MG TAB PO SCH (20:25)
[2020-06-30] MEDS: Gabapentin 100 MG CAP PO SCH (20:26)
[2020-06-30] MEDS: Metoprolol Tartrate 50 MG TAB PO SCH (20:27)
[2020-06-30] MEDS: Ampicillin/Sulbactam 3 GM in Sodium Chloride 0.9% 100 ML IVPB SCH (21:46)
[2020-07-01] MEDS: Acetaminophen 325 MG TAB PO PRN (01:30)
[2020-07-01] MEDS: Morphine 2 MG/ML VIAL SLOW IVP PRN ×3 (02:25→15:45)
[2020-07-01] MEDS: Ampicillin/Sulbactam 3 GM in Sodium Chloride 0.9% 100 ML IVPB SCH ×4 (02:40→20:39)
[2020-07-01] MEDS ORDERED: Baclofen 10 MG TAB PO SCH (03:00)
[2020-07-01] MEDS ORDERED: Morphine 2 MG/ML VIAL SLOW IVP SCH ×2 (03:15)
[2020-07-01 06:25] LABS: #Basophils 0.1 thou/uL (0.0-0.2); #Eosinphils 0.5 thou/uL (0.0-0.7); #Lymphocytes 2.1 thou/uL (1.20-3.40); #Monocytes 0.7 thou/uL (0.11-0.59); #Neutrophils 5.8 thou/uL (1.40-6.50); %Basophils 0.6 % (0.0-1.0); %Eosinophils 5.8 % (0.0-10.0); %Lymphocytes 22.4 % (21.0-51.0); %Monocytes 7.6 % (0.0-10.0); %Neutrophils 63.6 % (42.0-75.0); Hemoglobin 12.4 g/dL (14.0-18.0); Mean Corpuscular HGB CONC 32.7 g/dL (32.0-36.0); Mean Corpuscular Hemoglobin 30.5 pg (27.0-31.0); Mean Corpuscular Volume 93.3 fL (78.0-98.0); Mean Platelet Volume 7.2 fL (7.4-10.4); Platelet Count 291 thou/uL (130-400); RBC Distribution Width 12.6 % (11.5-14.5); Red Blood Cell (RBC) Count 4.05 mill/uL (4.70-6.10); White Blood Cell (WBC) Count 9.1 thou/uL (4.8-10.8)
[2020-07-01 06:48] LABS: Phosphorus 2.9 mg/dL (2.3-4.7)
[2020-07-01 06:51] LABS: Anion Gap 13 mmol/L (10-20); BUN (Urea Nitrogen) 19 mg/dL (8.4-25.7); Calc. Creatinine Clearance 68 mL/min (70-130); Calcium 9.4 mg/dL (7.8-10.44); Carbon Dioxide 22 mmol/L (23-31); Chloride 106 mmol/L (98-107); Glucose 86 mg/dL (80-115); Magnesium 1.9 mg/dL (1.6-2.6); Sodium 137 mmol/L (136-145)
[2020-07-01] MEDS: Metoprolol Tartrate 50 MG TAB PO SCH ×2 (08:22→20:40)
[2020-07-01] MEDS: Capsaicin 0.025% Cream 60 gm Tube TOP SCH ×3 (08:23→20:40)
[2020-07-01] MEDS: Gabapentin 100 MG CAP PO SCH ×3 (08:23→20:39)
[2020-07-01] MEDS: Enoxaparin Sodium 40 MG/0.4 ML SYRINGE SC SCH (08:23)
[2020-07-01] MEDS: Lidocaine 5% Patch TD SCH (08:23)
[2020-07-01] MEDS: Amlodipine 10 MG TAB PO SCH (20:40)
[2020-07-01] MEDS: Lidocaine Patch Removal TOP SCH (20:40)
[2020-07-02] MEDS: Ampicillin/Sulbactam 3 GM in Sodium Chloride 0.9% 100 ML IVPB SCH ×2 (01:20→08:46)
[2020-07-02] MEDS: Acetaminophen 325 MG TAB PO PRN ×3 (01:56→20:21)
[2020-07-02] MEDS: Morphine 2 MG/ML VIAL SLOW IVP PRN ×2 (03:33→14:18)
[2020-07-02 06:01] LABS: #Basophils 0.1 thou/uL (0.0-0.2); #Eosinphils 0.6 thou/uL (0.0-0.7); #Lymphocytes 1.7 thou/uL (1.20-3.40); #Monocytes 0.6 thou/uL (0.11-0.59); #Neutrophils 5.9 thou/uL (1.40-6.50); %Basophils 0.7 % (0.0-1.0); %Eosinophils 6.8 % (0.0-10.0); %Lymphocytes 19.4 % (21.0-51.0); %Monocytes 6.2 % (0.0-10.0); %Neutrophils 66.9 % (42.0-75.0); Hemoglobin 12.8 g/dL (14.0-18.0); Mean Corpuscular HGB CONC 31.5 g/dL (32.0-36.0); Mean Corpuscular Hemoglobin 29.2 pg (27.0-31.0); Mean Corpuscular Volume 92.9 fL (78.0-98.0); Mean Platelet Volume 7.3 fL (7.4-10.4); Platelet Count 290 thou/uL (130-400); RBC Distribution Width 12.6 % (11.5-14.5); Red Blood Cell (RBC) Count 4.39 mill/uL (4.70-6.10); White Blood Cell (WBC) Count 8.8 thou/uL (4.8-10.8)
[2020-07-02 06:15] LABS: Anion Gap 15 mmol/L (10-20); BUN (Urea Nitrogen) 16 mg/dL (8.4-25.7); Calc. Creatinine Clearance 70 mL/min (70-130); Calcium 9.6 mg/dL (7.8-10.44); Carbon Dioxide 24 mmol/L (23-31); Chloride 104 mmol/L (98-107); Glucose 99 mg/dL (80-115); Potassium 3.8 mmol/L (3.5-5.1); Sodium 139 mmol/L (136-145)
[2020-07-02] MEDS: Metoprolol Tartrate 50 MG TAB PO SCH ×2 (08:49→20:22)
[2020-07-02] MEDS: Gabapentin 100 MG CAP PO SCH ×3 (08:49→20:20)
[2020-07-02] MEDS: Enoxaparin Sodium 40 MG/0.4 ML SYRINGE SC SCH (08:49)
[2020-07-02] MEDS: Lidocaine 5% Patch TD SCH (08:50)
[2020-07-02] MEDS: Capsaicin 0.025% Cream 60 gm Tube TOP SCH ×3 (08:56→20:22)
[2020-07-02] MEDS: Amlodipine 10 MG TAB PO SCH (20:19)
[2020-07-02] MEDS: Lidocaine Patch Removal TOP SCH (20:23)
[2020-07-03] MEDS: Morphine 2 MG/ML VIAL SLOW IVP PRN ×5 (01:28→20:04)
[2020-07-03] MEDS: Lidocaine 5% Patch TD SCH (08:44)
[2020-07-03] MEDS: Metoprolol Tartrate 50 MG TAB PO SCH ×2 (08:44→20:04)
[2020-07-03] MEDS: Gabapentin 100 MG CAP PO SCH ×3 (08:45→20:08)
[2020-07-03] MEDS: Capsaicin 0.025% Cream 60 gm Tube TOP SCH ×3 (08:46→20:05)
[2020-07-03] MEDS: Enoxaparin Sodium 40 MG/0.4 ML SYRINGE SC SCH (08:46)
[2020-07-03] MEDS: Acetaminophen 325 MG TAB PO PRN (12:59)
[2020-07-03] MEDS: Amlodipine 10 MG TAB PO SCH (20:05)
[2020-07-03] MEDS: Lidocaine Patch Removal TOP SCH (20:08)
[2020-07-03] MEDS ORDERED: Baclofen 10 MG TAB PO SCH (21:30)
[2020-07-04] MEDS: Acetaminophen 325 MG TAB PO PRN (05:41)
[2020-07-04] MEDS ORDERED: Baclofen 10 MG TAB PO PRN (07:03)
[2020-07-04] MEDS: Metoprolol Tartrate 50 MG TAB PO SCH (08:13)
[2020-07-04] MEDS: Gabapentin 100 MG CAP PO SCH ×2 (08:14→14:09)
[2020-07-04] MEDS: Enoxaparin Sodium 40 MG/0.4 ML SYRINGE SC SCH ×2 (08:17→08:20)
[2020-07-04] MEDS: Capsaicin 0.025% Cream 60 gm Tube TOP SCH ×2 (08:18→14:10)
[2020-07-04] MEDS: Lidocaine 5% Patch TD SCH (08:20)
[2020-07-04] MEDS: Morphine 2 MG/ML VIAL SLOW IVP PRN ×2 (08:23→17:43)
[2020-07-04 18:02] VITALS: BP 122/82; TEMP 98.3
== END 2020-07-04 18:41 | DRG 177 ==
LOC: ERS 13:50 → T4-A 16:44
PROVIDERS: ADMIT Family Medicine; ATTEND Family Medicine
DX: J69.0 Pneumonitis due to inhalation of food and vomit (principal); S72.001A Fracture of unspecified part of neck of right femur, initial encounter for closed fracture; J96.01 Acute respiratory failure with hypoxia; Z68.1 Body mass index [BMI] 19.9 or less, adult; E46 Unspecified protein-calorie malnutrition; F17.210 Nicotine dependence, cigarettes, uncomplicated; L89.152 Pressure ulcer of sacral region, stage 2; I10 Essential (primary) hypertension; R62.7 Adult failure to thrive; L89.321 Pressure ulcer of left buttock, stage 1; L89.312 Pressure ulcer of right buttock, stage 2; G70.9 Myoneural disorder, unspecified; Z93.3 Colostomy status; Z79.899 Other long term (current) drug therapy; Z79.891 Long term (current) use of opiate analgesic; Z74.01 Bed confinement status; X58.XXXA Exposure to other specified factors, initial encounter; Z20.822 Contact with and (suspected) exposure to COVID-19
CPT/HCPCS: 0240U; 36415; 71045; 71275; 80048; 80053; 81003; 81015; 82550; 83605; 83735; 84100; 84145; 84484; 85025; 87040; 93005; 94760; 96365; 96367; 96375; J0295; J0456; J0696; J1650; J2270; J3010; J3490; Q9967